=== PATIENT | female | born 1945 | race Caucasian/White ===

== ENCOUNTER → 2016-12-17 | Outpatient (CLI) | payer MEDICARE ==
[~2016-12-17] MED LIST: ASPI81CH CHEW; FAMO1TAB37 PO; FERR324T4 PO; FERR325T PO; LIPI40TA PO; METO25TA3 PO; PLAV75TA29 PO; SUCR1TAB PO
[2016-12-17 14:46] LABS: HEMATOCRIT 27.2 % (35.0-46.0); REVIEW FLAG FINAL
== END ==
LOC: CLAB 14:24
DX: K92.1 Melena (principal)
CPT/HCPCS: 36415; 85014; 85018

== ENCOUNTER → 2016-12-23 | Outpatient (CLI) | payer MEDICARE ==
[2016-12-23 11:51] LABS: HEMATOCRIT 29.1 % (35.0-46.0); REVIEW FLAG FINAL
== END ==
LOC: CLAB 11:21
DX: K92.1 Melena (principal)
CPT/HCPCS: 36415; 85014; 85018

== ENCOUNTER → 2016-12-30 | Outpatient (CLI) | payer MEDICARE ==
[2016-12-30 11:33] LABS: HEMATOCRIT 31.8 % (35.0-46.0); REVIEW FLAG FINAL
== END ==
LOC: CLAB 11:15
DX: K92.1 Melena (principal)
CPT/HCPCS: 36415; 85014; 85018

== ENCOUNTER → 2017-01-06 | Outpatient (CLI) | payer MEDICARE ==
[2017-01-06 11:13] LABS: HEMATOCRIT 33.6 % (35.0-46.0); REVIEW FLAG FINAL
== END ==
LOC: CLAB 10:26
DX: K92.1 Melena (principal)
CPT/HCPCS: 36415; 85014; 85018

== ENCOUNTER → 2017-01-13 | Outpatient (CLI) | payer MEDICARE ==
[2017-01-13 13:02] LABS: HEMATOCRIT 30.3 % (35.0-46.0); REVIEW FLAG FINAL
== END ==
LOC: CLAB 12:46
DX: K92.1 Melena (principal)
CPT/HCPCS: 36415; 85014; 85018

== ENCOUNTER 2017-01-17 15:03 | Emergency (ER) | payer MEDICARE ==
[2017-01-17] VITALS (8 sets, daily range): BP systolic 110–156; BP diastolic 56–70; PULSE 80–95; RESP 14–20; TEMP 98–98.5; O2SAT 97–100
[~2017-01-17] VITALS: Ht 160 cm; Wt 60.0 kg
[~2017-01-17 15:03] MED LIST changes: -ASPI81CH CHEW; -FAMO1TAB37 PO; -FERR324T4 PO; -LIPI40TA PO; -METO25TA3 PO; -PLAV75TA29 PO; -SUCR1TAB PO
[2017-01-17] MEDS ORDERED: PLAV75TA29 PO (15:54)
[2017-01-17] MEDS ORDERED: METO25TA3 PO (15:54)
[2017-01-17] MEDS ORDERED: FAMO1TAB37 PO (15:54)
[2017-01-17] MEDS ORDERED: FERR324T4 PO (15:54)
[2017-01-17] MEDS ORDERED: SUCR1TAB PO (15:54)
[2017-01-17] MEDS ORDERED: ASPI81CH CHEW (15:54)
[2017-01-17] MEDS ORDERED: LIPI40TA PO (15:54)
--- NOTE | 2017-01-17 16:01 | PD ---
HPI Chief Complaint: Abnormal Results Time Seen by Provider: 15:57 Travel History International Travel<30 days: No Contact w/Intl Traveler<30days: No Traveled to known affect area: No History of Present Illness HPI 71-year-old female came to the emergency room with history of low hemoglobin from GI bleed. Patient is seen by her GI specialist Dr. Son. She has history of GI bleed and was recently started on Plavix one week ago by her market research intern and she has a stent in her coronary artery. Since then her hemoglobin dropped from 9.7-7.8. She is feeling little weak but otherwise awake and answering questions appropriately. Vital signs are stable. No history of chest pain currently. [facility] Past Medical History Narrative Medical List of her past medical, surgical, social and family history was reviewed from the nursing note. Hx Anticoagulant Therapy: Yes Anemia: Yes Arthritis: Yes Blood Disorders: No Cardiovascular Problems: Yes (2 STENTS) Chest Pain: Yes Cerebrovascular Accident: No Diminished Hearing: No Endocrine: No GERD: Yes Headaches: Yes Hypertension: No Immune Disorder: No Musculoskeletal: No Neurologic: No Reproductive: No Respiratory: No Immunizations Current: Yes Migraines: No Myocardial Infarction: Yes Menopausal: Yes Past Surgical History Abdominal Surgery: No Cardiac Surgery: Yes Ear Surgery: No Endocrine Surgery: No Eye Surgery: No Genitourinary Surgery: No Gynecologic Surgery: Yes (UTERINE CANCER) Hysterectomy: Yes Neurologic Surgery: No Oral Surgery: Yes (REBUILD BONE & TEETH IMPLANTS) Thoracic Surgery: No Tonsillectomy: Yes (1948) Other Surgery: Yes (BREAST AUGMENTATION) Social History Alcohol Use: No Tobacco Use: No Substance Use: No Allergies-Medications (Allergen,Severity, Reaction): Coded Allergies: No Known Allergies (Verified , 01/17/17) Comments No known drug allergies. Reported Meds & Prescriptions Reported Meds & Active Scripts Active Reported Plavix (Clopidogrel Bisulfate) 75 Mg Tab 75 Mg PO DAILY Sucralfate 1 Gm Tab 1 Gm PO TID on empty stomach Pepcid (Famotidine) 20 Mg Tab 20 Mg PO DAILY Metoprolol Tartrate 25 Mg Tab 25 Mg PO DAILY Lipitor (Atorvastatin Calcium) 40 Mg Tab 40 Mg PO HS Ferrous Sulfate DR (Ferrous Sulfate) 324 Mg Tabdr 324 Mg PO DAILY Aspirin 81 Mg Chew 81 Mg CHEW DAILY Iron (Ferrous Sulfate) 325 Mg Tab 325 Mg PO BID Narrative Medication List of her home medications reviewed from the nursing note. Review of Systems Except as stated in HPI: all other systems reviewed are Neg Physical Exam Narrative GENERAL: Awake, alert, no obvious distress SKIN: Focused skin assessment warm/dry. Pale HEAD: Atraumatic. Normocephalic. EYES: Pupils equal and round. No scleral icterus. No injection or drainage. Pallor ENT: No nasal bleeding or discharge. Mucous membranes pink and moist. NECK: Trachea midline. No JVD. CARDIOVASCULAR: Regular rate and rhythm. No murmur appreciated. RESPIRATORY: No accessory muscle use. Clear to auscultation. Breath sounds equal bilaterally. GASTROINTESTINAL: Abdomen soft, non-tender, nondistended. Hepatic and splenic margins not palpable. MUSCULOSKELETAL: No obvious deformities. No clubbing. No cyanosis. No edema. NEUROLOGICAL: Awake and alert. No obvious cranial nerve deficits. Motor grossly within normal limits. Normal speech. PSYCHIATRIC: Appropriate mood and affect; insight and judgment normal. Data Data Last Documented VS Orders Type And Screen (01/17/17 16:05) Red Blood Cells (Rbc) (01/17/17 16:05) Blood Product Administration .UPON TRANSFUSION (01/17/17 16:05) Sodium Chlor 0.9% 250 Ml Inj (Ns 250 Ml (01/17/17 16:15) Labs Laboratory Tests Test 01/17/17 16:09 Blood Type A POSITIVE Antibody Screen NEGATIVE Crossmatch Leukocyte-Reduced Red Blood Cells Blood Bank Comment MDM Medical Decision Making Medical Screen Exam Complete: Yes Emergency Medical Condition: Yes Medical Record Reviewed: Yes Differential Diagnosis Upper GI bleed, lower GI bleed Narrative Course 5:02 PM patient does have a GI specialist who is working her up for the GI bleed. Since she does not have any active hemorrhage I do not want to get into the workup of GI bleed. However I have ordered 2 units of PRBC transfusion. After the transfusion is done patient will be discharged home. She is aware of this and she is comfortable with the plan. Procedures EKG Prior to Arrival: No Diagnosis Primary Impression: Symptomatic anemia Referrals: Primary Care Physician Additional Instructions: Please follow-up with a GI specialist. Return to the ER if the condition worsens or any other new concerns. Disposition: 01 DISCHARGE HOME Condition: Stable Jeff Keith MD Jan 17, 2017 16:01 Jeff Keith MD Jan 17, 2017 16:01
[2017-01-17] MEDS ORDERED: SODIUM CHLOR 0.9% 250 ML INJ 250 ML IV ONE (16:15)
== END 2017-01-17 23:01 | disposition home or self-care (01) ==
LOC: NEPC 15:03
DX: D64.9 Anemia, unspecified (principal); K92.2 Gastrointestinal hemorrhage, unspecified; R53.1 Weakness; Z79.01 Long term (current) use of anticoagulants
CPT/HCPCS: 36430; 86850; 86900; 86901; 86902; 86920; 86922; 99285; J7050; P9016

== ENCOUNTER → 2017-01-17 | Outpatient (CLI) | payer MEDICARE | LOC: CLAB 08:52 | PROVIDERS: ATTEND Internal Medicine Interventional Cardiology | DX: K92.2 Gastrointestinal hemorrhage, unspecified (principal) | CPT/HCPCS: 36415; 85018 ==

== ENCOUNTER → 2017-01-21 | Outpatient (CLI) | payer MEDICARE ==
[~2017-01-21] MED LIST changes: +ASPI81CH CHEW; +FAMO1TAB37 PO; +FERR324T4 PO; +LIPI40TA PO; +METO25TA3 PO; +PLAV75TA29 PO; +SUCR1TAB PO
[2017-01-21 09:25] LABS: HEMATOCRIT 37.1 % (35.0-46.0); REVIEW FLAG FINAL
== END ==
LOC: CLAB 09:07
DX: K92.1 Melena (principal)
CPT/HCPCS: 36415; 85014; 85018

== ENCOUNTER → 2017-01-28 | Outpatient (CLI) | payer MEDICARE ==
[2017-01-28 11:25] LABS: HEMATOCRIT 34.8 % (35.0-46.0); REVIEW FLAG FINAL
== END ==
LOC: CLAB 11:13
DX: K92.1 Melena (principal)
CPT/HCPCS: 36415; 85014; 85018

== ENCOUNTER → 2017-02-04 | Outpatient (CLI) | payer MEDICARE ==
[2017-02-04 13:06] LABS: HEMATOCRIT 36.5 % (35.0-46.0); REVIEW FLAG FINAL
== END ==
LOC: CLAB 12:47
DX: K92.1 Melena (principal)
CPT/HCPCS: 36415; 85014; 85018

== ENCOUNTER → 2017-02-15 | Outpatient (CLI) | payer MEDICARE ==
[2017-02-15 12:32] LABS: HEMATOCRIT 36.9 % (35.0-46.0); REVIEW FLAG FINAL
[2017-02-15 13:00] LABS: HDL CHOLESTEROL 79.7 MG/DL (40.0-60.0); TOTAL BILIRUBIN ADULT 0.4 MG/DL (0.2-1.0)
[2017-02-15 13:07] LABS: INDIRECT BILIRUBIN 0.3 MG/DL (0.0-0.8)
== END ==
LOC: CLAB 12:08
DX: E78.5 Hyperlipidemia, unspecified (principal); K92.1 Melena
CPT/HCPCS: 36415; 80061; 80076; 85014; 85018

== ENCOUNTER → 2017-03-08 | Outpatient (CLI) | payer MEDICARE | LOC: CLAB 12:15 | PROVIDERS: ATTEND Internal Medicine Interventional Cardiology | DX: K92.2 Gastrointestinal hemorrhage, unspecified (principal) | CPT/HCPCS: 36415; 85018 ==

== ENCOUNTER → 2017-06-03 | Outpatient (CLI) | payer MEDICARE ==
[2017-06-03 13:01] LABS: REVIEW FLAG FINAL
== END ==
LOC: CLAB 12:35
DX: K92.1 Melena (principal)
CPT/HCPCS: 36415; 85014; 85018

== ENCOUNTER 2017-06-15 11:25 | Emergency (ER) | payer MEDICARE ==
[~2017-06-15 11:25] MED LIST changes: +ASPI-516 CHEW; -ASPI81CH CHEW
--- NOTE | 2017-06-15 11:36 | PD ---
HPI Chief Complaint: General Weakness Time Seen by Provider: 11:33 Travel History International Travel<30 days: No Contact w/Intl Traveler<30days: No Traveled to known affect area: No History of Present Illness HPI This 71-year-old female says she had an episode where she felt weak all over about 2 hours ago. She had a myocardial infarction in November when she took some nitroglycerin and says she feels a little bit better now. In November she had 2 stents placed and she is on fairly well since then. 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 When she was put on blood thinners after the myocardial infarction she had bleeding and increased blood transfusions. Her last transfusion was in January and she is taken off blood thinners. She has been having some epigastric pain off and on for the past week. There was quite bad last night. She has occasional vomiting with the pain. PFSH Past Medical History Hx Anticoagulant Therapy: Yes Anemia: Yes Arthritis: Yes Blood Disorders: No Cardiovascular Problems: Yes (2 STENTS) Chest Pain: Yes Cerebrovascular Accident: No Diminished Hearing: No Endocrine: No GERD: Yes Headaches: Yes Hypertension: No Immune Disorder: No Musculoskeletal: No Neurologic: No Reproductive: No Respiratory: No Immunizations Current: Yes Migraines: No Myocardial Infarction: Yes Menopausal: Yes Past Surgical History Abdominal Surgery: No Cardiac Surgery: Yes Ear Surgery: No Endocrine Surgery: No Eye Surgery: No Genitourinary Surgery: No Gynecologic Surgery: Yes (UTERINE CANCER) Hysterectomy: Yes Neurologic Surgery: No Oral Surgery: Yes (REBUILD BONE & TEETH IMPLANTS) Thoracic Surgery: No Tonsillectomy: Yes (194) Other Surgery: Yes (BREAST AUGMENTATION) Social History Alcohol Use: No Tobacco Use: No Substance Use: No Allergies-Medications (Allergen,Severity, Reaction): Coded Allergies: No Known Allergies (Verified Adverse Reaction, Unknown, 06/15/17) Reported Meds & Prescriptions Reported Meds & Active Scripts Active Reported Nitroglycerin SL (Nitroglycerin) 0.4 Mg Subl 0.4 Mg SL DIRECTED PRN ONE TABLET UNDER THE TONGUE NEEDED FOR CHEST PAIN, MAY REPEAT EVERY FIVE MINUTES FOR A TOTAL OF 3 DOSES OR CALL 911 IF NO RELIEF Sucralfate 1 Gm Tab 1 Gm PO TID on empty stomach Pepcid (Famotidine) 20 Mg Tab 20 Mg PO DAILY Metoprolol Tartrate 25 Mg Tab 25 Mg PO DAILY Lipitor (Atorvastatin Calcium) 40 Mg Tab 40 Mg PO HS Ferrous Sulfate DR (Ferrous Sulfate) 324 Mg Tabdr 324 Mg PO DAILY Aspirin 81 Mg Chew 81 Mg CHEW DAILY Review of Systems General / Constitutional: No: Fever, Chills HENT: Positive: Lightheadedness Cardiovascular: No: Chest Pain or Discomfort, Palpitations Respiratory: No: Cough, Shortness of Breath Gastrointestinal: Positive: Nausea, Abdominal Pain Genitourinary: No: Frequency, Dysuria Neurologic: Positive: Weakness Psychiatric: No: Anxiety, Depression Hematologic/Lymphatic: No: Easy Bruising Physical Exam Narrative GENERAL: Well-developed female SKIN: Focused skin assessment warm/dry. HEAD: Atraumatic. Normocephalic. EYES: Pupils equal and round. No scleral icterus. No injection or drainage. ENT: No nasal bleeding or discharge. Mucous membranes pink and moist. NECK: Trachea midline. No JVD. CARDIOVASCULAR: Regular rate and rhythm. No murmur appreciated. RESPIRATORY: No accessory muscle use. Clear to auscultation. Breath sounds equal bilaterally. GASTROINTESTINAL: Abdomen soft, there is some epigastric tenderness, nondistended. Hepatic and splenic margins not palpable. MUSCULOSKELETAL: No obvious deformities. No clubbing. No cyanosis. No edema. NEUROLOGICAL: Awake and alert. No obvious cranial nerve deficits. Motor grossly within normal limits. Normal speech. PSYCHIATRIC: Appropriate mood and affect; insight and judgment normal. Data Data Last Documented VS Vital Signs Date Time Temp Pulse Resp B/P (MAP) Pulse Ox O2 Delivery O2 Flow Rate FiO2 06/15/17 11:45 98.6 80 15 184/76 (112) 100 Orders Orders Electrocardiogram (06/15/17 11:33) Complete Blood Count With Diff (06/15/17 11:33) Comprehensive Metabolic Panel (06/15/17 11:33) Troponin I (06/15/17 11:33) Lipase (06/15/17 11:33) Urinalysis - C+S If Indicated (06/15/17 11:33) Us Abdomen Gallbladder (06/15/17 11:34) Labs Laboratory Tests Test 06/15/17 11:38 White Blood Count 6.7 TH/MM3 Red Blood Count 3.91 MIL/MM3 Hemoglobin 10.5 GM/DL Hematocrit 33.1 % Mean Corpuscular Volume 84.7 FL Mean Corpuscular Hemoglobin 26.8 PG Mean Corpuscular Hemoglobin Concent 31.6 % Red Cell Distribution Width 15.4 % Platelet Count 277 TH/MM3 Mean Platelet Volume 7.9 FL Neutrophils (%) (Auto) 74.2 % Lymphocytes (%) (Auto) 12.4 % Monocytes (%) (Auto) 6.7 % Eosinophils (%) (Auto) 6.3 % Basophils (%) (Auto) 0.4 % Neutrophils # (Auto) 5.0 TH/MM3 Lymphocytes # (Auto) 0.8 TH/MM3 Monocytes # (Auto) 0.5 TH/MM3 Eosinophils # (Auto) 0.4 TH/MM3 Basophils # (Auto) 0.0 TH/MM3 CBC Comment DIFF FINAL Differential Comment Blood Urea Nitrogen 17 MG/DL Creatinine 0.76 MG/DL Random Glucose 99 MG/DL Total Protein 6.8 GM/DL Albumin 3.7 GM/DL Calcium Level 8.6 MG/DL Alkaline Phosphatase 70 U/L Aspartate Amino Transf (AST/SGOT) 17 U/L Alanine Aminotransferase (ALT/SGPT) 23 U/L Total Bilirubin 0.4 MG/DL Sodium Level 138 MEQ/L Potassium Level 4.0 MEQ/L Chloride Level 104 MEQ/L Carbon Dioxide Level 25.0 MEQ/L Anion Gap 9 MEQ/L Estimat Glomerular Filtration Rate 75 ML/MIN Troponin I LESS THAN 0.02 NG/ML Lipase 233 U/L MDM Medical Decision Making Medical Screen Exam Complete: Yes Emergency Medical Condition: Yes Medical Record Reviewed: Yes Differential Diagnosis Differential includes gastritis, cholecystitis, generalized weakness, anemia Narrative Course Hemoglobin today is 10.5 which is similar to previous values. Liver function tests are normal. Her white count is normal. Ultrasound of the gallbladder is normal on reevaluating the patient she says she feels well. She is stable for discharge. Etiology of her abdominal discomfort is not clear. She does have a history of abdominal AVMs and is on Prilosec. She follow up with Dr. Ambriz who has seen her in the past area EKG and troponin are negative and I don't believe this is a cardiac issue Diagnosis Primary Impression: Gastritis Additional Instructions: Continue Prilosec, follow-up with Dr. Ambriz Disposition: 01 DISCHARGE HOME Condition: Stable Dhiraj Tracy MD Jun 15, 2017 11:36
[2017-06-15 11:45] VITALS: BP 184/76; PULSE 80; RESP 15; TEMP 98.6; O2SAT 100
[2017-06-15 11:49] LABS: BASOPHIL % 0.4 % (0.0-2.0); EOSINOPHIL # 0.4 TH/MM3 (0-0.4); EOSINOPHIL % 6.3 % (0.0-4.0); HEMATOCRIT 33.1 % (35.0-46.0); HEMO FLAGS DIFF FINAL; LYMPH % 12.4 % (9.0-44.0); LYMPHOCYTE # 0.8 TH/MM3 (1.0-4.8); MEAN CELL VOLUME 84.7 FL (80.0-100.0); MEAN CORPUSCULAR HEMOGLOBIN 26.8 PG (27.0-34.0); MEAN CORPUSCULAR HGB CONC 31.6 % (32.0-36.0); MONO % 6.7 % (0.0-8.0); NEUT % 74.2 % (16.0-70.0); PLATELET COUNT 277 TH/MM3 (150-450); RED BLOOD COUNT 3.91 MIL/MM3 (4.00-5.30); RED CELL DISTRIBUTION WIDTH 15.4 % (11.6-17.2); WHITE BLOOD COUNT 6.7 TH/MM3 (4.0-11.0)
[2017-06-15 11:56] LABS: CHLORIDE 104 MEQ/L (98-107); SODIUM (NA) 138 MEQ/L (136-145)
[2017-06-15] MEDS ORDERED: NITR1SUB3 SL (12:00)
[2017-06-15 12:01] LABS: ANION GAP 9 MEQ/L (5-15); BLOOD UREA NITROGEN 17 MG/DL (7-18)
[2017-06-15 12:04] LABS: ALT (GPT) 23 U/L (10-53); AST (GOT) 17 U/L (15-37); GLOMERULAR FILTRATION RATE 75 ML/MIN (>89)
[2017-06-15 12:05] LABS: TOTAL BILIRUBIN ADULT 0.4 MG/DL (0.2-1.0)
[2017-06-15 12:07] LABS: ALKALINE PHOSPHATASE 70 U/L (45-117)
--- NOTE | 2017-06-15 12:29 | RADRPT ---
EXAM DATE/TIME: 06/15/2017 11:59 [facility] COMPARISON: No previous studies available for comparison. INDICATIONS : Nausea/vomiting. MEDICAL HISTORY : Myocardial infarction. Arthritis. Uterine cancer. Head trauma. Chest pain. GERD. Anemia. Anticoagul ant therapy. SURGICAL HISTORY : Tonsillectomy. Coronary artery stent. Hysterectomy. Oral surgery, rebuild bone and teeth implants. Br east augmentation. ENCOUNTER: Initial ACUITY: 1 week PAIN SCORE: 0/10 LOCATION: Right upper quadrant MEASUREMENTS: LIVER: 14.0 cm length COMMON DUCT: 5 mm RIGHT KIDNEY: 9.4 x 4.6 x 3.5 cm FINDINGS: LIVER: Normal echotexture without focal lesion or ductal dilatation. There is normal flow velocity and direc tion in the main portal vein. COMMON DUCT: No intraluminal mass or stone visualized. GALLBLADDER: Trace sludge. No perceptible stone. No wall thickening or pericholecystic fluid. PANCREAS: The visualized portions are within normal limits. RIGHT KIDNEY: No evidence of hydronephrosis, stone, or mass. CONCLUSION: Very small amount of gallbladder sludge. Otherwise negative right upper quadrant ultrasound. Gume Garza MD on June 15, 2017 at 12:26 Board Certified Radiologist. This report was verified electronically.
[2017-06-15 12:59] VITALS: BP 130/53
--- NOTE | 2017-06-15 16:41 | EKG ---
Date Performed: 06/15/2017 Time Performed: 11:33:19 PTAGE: 71 years EKG: Sinus rhythm POSSIBLE RIGHT VENTRICULAR CONDUCTION DELAY Mild nonspecific ST T wave changes BORDERLINE ECG Compar ed to prior electrocardiogram, rate has increased and mild nonspecific ST T wave changes are present. PREVIOUS TRACING : 08/06/2016 14.16 DOCTOR: Patrick Mackey Interpretating Date/Time 06/15/2017 16:40:30
== END 2017-06-15 13:15 | disposition home or self-care (01) ==
LOC: PHED 11:25
DX: K29.70 Gastritis, unspecified, without bleeding (principal); R94.31 Abnormal electrocardiogram [ECG] [EKG]; I25.2 Old myocardial infarction; Z79.01 Long term (current) use of anticoagulants
CPT/HCPCS: 76705; 80053; 83690; 84484; 85025; 93005; 99285

== ENCOUNTER → 2017-07-11 | Outpatient (CLI) | payer MEDICARE ==
[~2017-07-11] MED LIST changes: -FERR325T PO; +NITR1SUB3 SL; -PLAV75TA29 PO
[2017-07-11 13:15] LABS: REVIEW FLAG FINAL
== END ==
LOC: CLAB 12:43
DX: K92.1 Melena (principal)
CPT/HCPCS: 36415; 85014; 85018

== ENCOUNTER → 2017-08-15 | Outpatient (CLI) | payer MEDICARE ==
[2017-08-15 12:34] LABS: HEMOGLOBIN 9.7 GM/DL (11.6-15.3)
== END ==
LOC: CLAB 11:56
PROVIDERS: ATTEND Physician Assistant Medical
DX: D50.0 Iron deficiency anemia secondary to blood loss (chronic) (principal)
CPT/HCPCS: 36415; 85014; 85018

== ENCOUNTER → 2017-09-19 | Outpatient (CLI) | payer MEDICARE ==
[2017-09-19 12:21] LABS: HEMOGLOBIN 10.7 GM/DL (11.6-15.3)
== END ==
LOC: CLAB 11:53
DX: D50.0 Iron deficiency anemia secondary to blood loss (chronic) (principal)
CPT/HCPCS: 36415; 85014; 85018

== ENCOUNTER → 2017-11-21 | Outpatient (CLI) | payer MEDICARE ==
[2017-11-21 12:54] LABS: HEMATOCRIT 33.3 % (35.0-46.0); HEMOGLOBIN 10.8 GM/DL (11.6-15.3)
== END ==
LOC: CLAB 12:31
DX: D50.0 Iron deficiency anemia secondary to blood loss (chronic) (principal)
CPT/HCPCS: 36415; 85014; 85018

== ENCOUNTER 2017-12-06 11:31 | Day surgery (SDC) | payer MEDICARE ==
[~2017-12-06] VITALS: Ht 158.8 cm; Wt 65.7 kg
[2017-12-06] MEDS ORDERED: IOHEXOL 350 MG/ML 100 ML BTL (for Cath Lab) OTHER ONE (11:32)
[2017-12-06] MEDS ORDERED: PRIL20TA2 (12:09)
[2017-12-06] MEDS ORDERED: ISOS30TA3 PO (12:09)
[2017-12-06 12:10] VITALS: BP 129/58; PULSE 71; RESP 18; TEMP 97.8; O2SAT 99
[2017-12-06] MEDS ORDERED: NS 1000P @30 MLS/HR (KVO) IV SCH (12:15)
[2017-12-06 12:36] LABS: BASOPHIL # 0.1 TH/MM3 (0-0.2); BASOPHIL % 0.9 % (0.0-2.0); EOSINOPHIL # 0.4 TH/MM3 (0-0.4); EOSINOPHIL % 5.4 % (0.0-4.0); HEMATOCRIT 29.1 % (35.0-46.0); HEMOGLOBIN 9.2 GM/DL (11.6-15.3); LYMPH % 12.4 % (9.0-44.0); LYMPHOCYTE # 0.8 TH/MM3 (1.0-4.8); MEAN CELL VOLUME 84.2 FL (80.0-100.0); MEAN CORPUSCULAR HEMOGLOBIN 26.8 PG (27.0-34.0); MEAN CORPUSCULAR HGB CONC 31.8 % (32.0-36.0); MEAN PLATELET VOLUME 8.6 FL (7.0-11.0); MONO % 6.4 % (0.0-8.0); MONOCYTE # 0.4 TH/MM3 (0-0.9); NEUT % 74.9 % (16.0-70.0); PLATELET COUNT 365 TH/MM3 (150-450); RED BLOOD COUNT 3.45 MIL/MM3 (4.00-5.30); RED CELL DISTRIBUTION WIDTH 19.6 % (11.6-17.2); WHITE BLOOD COUNT 6.6 TH/MM3 (4.0-11.0)
[2017-12-06 12:54] LABS: BICARBONATE 24.6 MEQ/L (21.0-32.0); CALCIUM 8.4 MG/DL (8.5-10.1); CREATININE 0.83 MG/DL (0.50-1.00)
[2017-12-06] MEDS ORDERED: MIDAZOLAM HCL 5 MG/5 ML VIAL ONE (13:57)
[2017-12-06] MEDS ORDERED: NITROGLYCERIN INJ 5 ML ONE (14:05)
[2017-12-06] MEDS ORDERED: HEPARIN SODIUM - IV 10,000 UNITS/10 ML VIAL ONE (14:05)
[2017-12-06] MEDS ORDERED: LIDOCAINE HCL 1% PF 30 ML VIAL ONE (14:08)
[2017-12-06] MEDS ORDERED: CLOPIDOGREL 300 MG TAB ONE (15:31)
--- NOTE | 2017-12-06 15:47 | CATHPROC ---
[email or web address] HIS Report Study Information Study Number Admission Scheduled Start Study Start [id number] Dec 06 2017 11:31AM 12/06/2017 Dec 06 2017 1:52PM [place] [facility] Cardiac Catheterization Admit Source Facility Department Emergency department [facility] - Nurse Coordinator Physician and Clinical Staff Initial Harsha Joyner Co Teacher Horacio Jansen RN Other cathlab, cathlab Recorder Bryn Wing RCIS(BS) Scrub Tennille Suazo,RT(R) Procedures Performed Procedure Location (Site) Vessel Name Angiogram LV LV Ventricle Coronary Angiograms LCA Left Coronary Coronary Angiograms RCA Right Coronary L Heart Cath PTCA CIRC Mid CIRC Stent CIRC Mid CIRC Wire insertion Fem Art (right) Femoral Art Equipment Time Elephant Keeper Description Size Mfg Part Number Used/Scraped WIRE, BALANCE MIDDLEWEIGHT [id number] 14:55 [employer] 190CM Used 190CM *[id number] TRANSDUCER, TRUWAVE [id number] 13:53 [email or web address] FERNANDES * Used W/STOCKCOCK *[id number] [id number] *[id number] 534-520T *[id number] [id number] *[id number] [id number] *[id number] *[id number] 15:24 DAIG/[facility] MEDICAL ANGIOSEAL, FR6 VIP FR 6 Used *[id number] 13:53 MEDLINE IND[employer]ES PACK, CCL CUSTOM * Used *[id number] 13:53 [employer] PACER PEN, SKIN DUAL W/ RULER * Used *[id number] 15:04 MED[employer]ONIC BALLOON, 2.0 X 6MM EUPHORA 6MM Used *[id number] 15:08 [employer] STENT, 2.5 12 INTEGRITY 2.5 12 Used *[id number] 15:06 [employer] MEDICAL 30 NATALEE INDEFLATOR Used *[id number] 14:57 [employer] MEDICAL SHEATH, FR6.5 PRELUDE 23CM FR 6.5 Used [id number] 13:53 [employer] WIRE, 3MMJ .035 180CM 180CM Used *[id number] PROBE COVER, STERILE [id number] 13:53 [employer] MEDICAL * Used ULTRASOUND W/ GEL *[id number] 13:53 NAMIC MANIFOLD, 4 PORT * Used *[id number] 14:18 NAMIC TUBING, HIGH PRESSURE 48" 48" Used *[id number] 13:53 NAMIC TUBING, HIGH PRESSURE 48" 48" Used *[id number] 13:53 [employer] OMNIPAQUE, 350 MG, 150ML 150ML [id number] Used 14:40 NYCOMED OMNIPAQUE, 350 MG, 50ML 50ML [id number] Used [id number] 13:53 [employer] MEDICAL BLANKET,WARM AIR CCL * Used *[id number] 13:53 TERUMO MEDICAL SHEATH, FR5 TERUMO (10CM) FR 5 Used *[id number] Equipment Model, Serial, Lot Number and Expiration Data Description Model Number Serial Number Lot Number Expiration Date STENT, 2.5 12 INTEGRITY [id number] 06-01-2019 History: Current Medications Medication Dosage/Unit Route Frequency Last Date/Time Taken LIPITOR Toprol Imdur ASA History: Allergies Allergy Reaction No Known Allergies History: Risk Factors Family History of Hypertension Dyslipidemia Previous MS Previous Heart Failure Premature CAD No Yes Yes Yes No Prior Valve Prior PCI Prior PCIDate Prior CABG Surgery No Yes 11/06/2016 No Cerebrovascular Peripheral Artery Chronic Lung On Dialysis Diabetes Disease Disease Disease No No No No No History: CV Disease Selection Items Known CAD MS History: Stress Tests Stress or Imaging Studies Performed Yes Standard Exercise Stress Test No Stress Echo No Stress Test SPECT Stress Test SPECT Result Stress Test SPECT Ischemia Risk/Extent Yes Positive Intermediate Stress Test CMR No Cardiac CTA Coronary Calcium Score No No History: Other Disease Selection Items CAD History: Other Current Smoker Method Quit Packs a Day Years Used Pack Years No Cigarettes 1 Years Ago 1 53 53 Labs Hgb (g/dl) Hct (%) RBC (MIL/MM3) WBC (l/cumm) Platelets (thousands) 11.60-17.00 35.00-51.00 4.00-5.90 4.00-11.00 150.00-450.00 9.2 29.1 3.4 6.6 365 Glucose (mg/dl) BUN (mg/dl) Creatinine (mg/dl) BUN:Creatinine (1:x) 74.00-106.00 7.00-18.00 0.50-1.30 10.00-20.00 91 16 0.8 20 Na (meq/l) K (meq/l) Cl (meq/l) CO2 (mmol/L) Ca (mg/dl) 136.00-145.00 3.50-5.10 98.00-107.00 21.00-32.00 8.50-10.10 143 4.2 109 24.6 8.4 PT (sec) PTT (sec) INR (PTT:PT) 9.80-11.60 24.30-30.10 0.90-1.10 10 24.3 1 CPK-MB (ng/ML) 0.50-3.60 Not Drawn Medication Medication Total Dose (Bolus/Oral) Medication Total Dosage/Unit 1% XYLOCAINE 20 mL FENTANYL 100 mcg HEPARIN 5000 units NTG (IC) 400 mcg PLAVIX 600 mg VERSED 5 mg Medications (Bolus/Oral) Medication Time Given Dosage/Unit Administered By Reason VERSED 12/06/2017 2:14:10 PM 1 mg Inderjit, Horacio 1 mg VERSED given in lab by Horacio Jansen RN in Left Wrist via Peripheral IV. FENTANYL 12/06/2017 2:15:06 PM 25 mcg Inderjit, Horacio 25 mcg FENTANYL given in lab by Horacio Jansen RN in Left Wrist via Peripheral IV. VERSED 12/06/2017 2:26:40 PM 1 mg Quadrat, Otakar 1 mg VERSED given in lab by Harsha Patel in Left Wrist via Peripheral IV. FENTANYL 12/06/2017 2:28:11 PM 25 mcg Inderjit, Horacio 25 mcg FENTANYL given in lab by Horacio Jansen RN in Left Wrist via Peripheral IV. 1% XYLOCAINE 12/06/2017 2:34:18 PM 20 mL Amanda, Jaykar 20 mL 1% XYLOCAINE given in lab by Harsha Patel in Right Groin via Subcutaneous. VERSED 12/06/2017 2:41:05 PM 1 mg Inderjit, Horacio 1 mg VERSED given in lab by Horacio Jansen RN in Left Wrist via Peripheral IV. FENTANYL 12/06/2017 2:41:22 PM 25 mcg Quadrat, [place] 25 mcg FENTANYL given in lab by Harsha Patel in Left Wrist via Peripheral IV. VERSED 12/06/2017 2:54:43 PM 1 mg Inderjit, Horacio 1 mg VERSED given in lab by Horacio Jansen RN in Left Wrist via Peripheral IV. FENTANYL 12/06/2017 2:55:00 PM 25 mcg Harsha Patel 25 mcg FENTANYL given in lab by Harsha Patel in Left Wrist via Peripheral IV. HEPARIN 12/06/2017 2:59:03 PM 5000 units Horacio Jansen 5000 units HEPARIN given in lab by Horacio Jansen RN in Left Wrist via Peripheral IV. VERSED 12/06/2017 2:59:10 PM 1 mg Horacio Jansen 1 mg VERSED given in lab by Horacio Jansen RN in Left Wrist via Peripheral IV. NTG (IC) 12/06/2017 3:01:52 PM 100 mcg Tennille Suazo 100 mcg NTG (IC) given in lab by Tennille Suazo RT(R) via Intra-coronary. NTG (IC) 12/06/2017 3:12:58 PM 100 mcg Tennille Suazo 100 mcg NTG (IC) given in lab by Tennille Suazo RT(R) via Intra-coronary. NTG (IC) 12/06/2017 3:14:13 PM 100 mcg Tennille Suazo 100 mcg NTG (IC) given in lab by Tennille Suazo RT(R) via Intra-coronary. NTG (IC) 12/06/2017 3:15:49 PM 100 mcg Tennille Suazo 100 mcg NTG (IC) given in lab by Tennille Suazo RT(R) via Intra-coronary. PLAVIX 12/06/2017 3:36:32 PM 600 mg Horacio Jansen 600 mg PLAVIX given in lab by Horacio Jansen RN via Oral. Medication (Drip) Medication Time Given Dosage/Unit Concentration/Unit Diluent (ml) Solutio n IV Solutions 12/06/2017 1:52:30 PM 0 mL (IV) 500 NaCl .9 Patient arrived on IV Solutions in Left Wrist via Peripheral IV. Pump/Drip Flow = 20 ml/hr using NaCl .9. Initial Case Assessment Cardiovascular HR Rhythm NIBP Chest Pain 71 Sinus 138/63 0 Edema Present Skin color Skin None Normal Warm Dry Circulatory - Right Pulses Dorsalis Pedis Femoral 2 2 Scale (0,1,2,3,4,d) Circulatory - Left Pulses Dorsalis Pedis Femoral 2 2 Scale (0,1,2,3,4,d) Neurological State Oriented to time-place- Alert Moves all extremities person Respiration - General Respiration Rate SpO2 (%) O2 (lpm) (B/min) 19 100 0 Final Case Assessment Cardiovascular HR Rhythm NIBP Chest Pain 83 Sinus 115/60 0 Edema Present Skin color Skin None Normal Warm Dry Circulatory - Right Pulses Dorsalis Pedis Femoral 2 2 Scale (0,1,2,3,4,d) Circulatory - Left Pulses Dorsalis Pedis Femoral 2 2 Scale (0,1,2,3,4,d) Neurological State Oriented to time-place- Alert Moves all extremities person Respiration - General Respiration Rate SpO2 (%) O2 (lpm) (B/min) 17 98 2 Chronological Log Time Study Chronological Log 13:52:22 Patient arrived via Bed. 13:52:22 Patient Name, D.O.B, / Armband Verified By R.N. 13:52:23 Consent signed by the physician and the patient and verified by the Nurse Coordinator staff. 13:52:24 Pre-op and post- op instructions given; patient acknowledges understanding of instructions. 13:52:24 Verbal Stimulation=2 Physical Stimulation=2 Airway=2 Respiration=2 TOTAL=8. (0=absent, 1=li mited, 2=present) 13:52:25 Presedation assessment performed by Nurse Coordinator RN. 13:52:26 Immediate Presedation assesment performed by physician. 13:52:26 Patient has been NPO for More than 6Hrs. 13:52:27 Skin Breakdown- none per patient 13:52:27 Patient Warmer Placed on the Table. 13:52:28 Jessica Prominences Protected 13:52:29 A # 20 IV was noted in the Wrist (left). Grade = 0 13:52:30 Patient arrived on IV Solutions in Left Wrist via Peripheral IV. Pump/Drip Flow = 20 ml/hr using NaCl .9. 13:52:30 History and physical on the chart or being dictated. Assessment: Initial Case, HR=71 BPM, Rhythm=Sinus, MGYG=877/63 mmhg, Chest Pain=0, Edema=None, Color=Normal, Skin = Warm, Dry Right Pulses: Suhas Ped=2, Femoral=2 13:57:56 Left Pulses: Suhas Ped=2, Femoral=2 Neurological: State=Alert, Ox3, MIRANDA Respiration: Resp=19 B/min, DgJ9=288 %, O2=0 lpm Vitals capture started with the following parameters, Patient=Adult, Interval=5 min, Initial Pr ptdzrl=722 mmHg, 14:01:26 Deflation Rate=5 mmHg, Cuff placed on Left Arm 14:02:39 HR=71 bpm, KBDX=869/63 mmhg, SpO2=97.0 %, Resp=19 B/min, Pain=0, Leana=10, Lang=2 14:07:05 HR=66 bpm, EOVZ=801/61 mmhg, SpO2=99.0 %, Resp=16 B/min, Pain=0, Leana=10, Lang=2 14:08:20 Reference ECG taken 14:09:55 Bilateral groins prepped with 2% chlorhexidine, and draped after a 3 minute waiting time. 14:12:06 HR=73 bpm, EDZC=959/66 mmhg, MtE6=919.0 %, Resp=21 B/min, Pain=0, Leana=10, Lang=2 14:14:10 1 mg VERSED given in lab by Horacio Jansen RN in Left Wrist via Peripheral IV. 14:14:56 paged 14:15:06 25 mcg FENTANYL given in lab by Horacio Jansen RN in Left Wrist via Peripheral IV. 14:16:04 Pressure channel 1 zeroed. 14:17:10 HR=72 bpm, GGDU=215/62 mmhg, SpO2=99.0 %, Resp=17 B/min, Pain=0, Leana=10, Lang=2 14:22:07 HR=69 bpm, RCMS=435/62 mmhg, SpO2=99.0 %, Resp=16 B/min, Pain=0, Leana=10, Lang=2 14:26:18 arrived. 14:26:40 1 mg VERSED given in lab by Harsha Patel in Left Wrist via Peripheral IV. 14:27:08 HR=74 bpm, XKFG=650/61 mmhg, NiT3=940.0 %, Resp=14 B/min, Pain=0, Leana=10, Lang=2 14:28:11 25 mcg FENTANYL given in lab by Horacio Jansen RN in Left Wrist via Peripheral IV. 14:32:07 HR=72 bpm, NIYN=808/63 mmhg, SpO2=99.0 %, Resp=14 B/min, Pain=0, Leana=10, Lang=2 Time Out. Correct patient, correct procedure, correct physician, power injector loaded with con trast with surgical team 14:32:27 present. Time Out Concurred by MD and individual staff in procedure. 14:32:40 Case Start 14:34:18 20 mL 1% XYLOCAINE given in lab by Harsha Patel in Right Groin via Subcutaneous. 14:35:24 Access site was Right Femoral Artery. 14:36:01 A SHEATH, FR5 TERUMO (10CM) FR 5 was advanced into the Fem Art (right) using the Percutaneo us technique. A PIGTAIL ANG. INFINITI CATHETER FR 5 was advanced over a wire. OMNIPAQUE, 350 MG, 150ML 150ML was used 14:36:18 for injections. 14:37:08 VP=610 bpm, TGET=156/65 mmhg, SpO2=99.0 %, Resp=20 B/min, Pain=0, Leana=10, Lang=2 Recorded Pressure: LV, HR=94, Condition=Condition 1 14:38:21 (Left Ventricle) LV 126/8/14 14:39:25 The LV was injected at 10 cc/sec for a total of 30. OMNIPAQUE, 350 MG, 50ML 50ML used. Recorded Pressure: LV, Ao, HR=80, Condition=Condition 1 14:40:17 (Left Ventricle) LV 119/6/15, (Aorta) Ao 122/50/80 14:41:00 Catheter was removed A JL 4.0 INFINITI CATHETER FR 5 was advanced over a wire. OMNIPAQUE, 350 MG, 150ML 150ML was us ed for 14:41:02 injections. 14:41:05 1 mg VERSED given in lab by Horacio Jansen, RN in Left Wrist via Peripheral IV. 14:41:22 25 mcg FENTANYL given in lab by Harsha Patel in Left Wrist via Peripheral IV. Recorded Pressure: Ao, HR=77, Condition=Condition 1 14:42:09 (Aorta) Ao 117/50/77 14:42:39 The LCA was injected and visualized at various angles. OMNIPAQUE, 350 MG, 150ML 150ML used . 14:42:40 HR=74 bpm, RWVU=354/57 mmhg, SpO2=99.0 %, Resp=14 B/min, Pain=0, Leana=10, Lang=2 14:44:14 Catheter was removed A AR MOD INFINITI CATHETER FR 5 was advanced over a wire. OMNIPAQUE, 350 MG, 150ML 150ML was us ed for 14:44:27 injections. 14:45:27 The RCA was injected and visualized at various angles. OMNIPAQUE, 350 MG, 150ML 150ML used . 14:46:47 Catheter was removed 14:47:08 HR=85 bpm, ZCFH=419/55 mmhg, SpO2=99.0 %, Resp=14 B/min, Pain=0, Leana=10, Lang=2 14:52:07 HR=79 bpm, VMYT=449/53 mmhg, SpO2=99.0 %, Resp=15 B/min, Pain=0, Leana=10, Lang=2 14:54:43 1 mg VERSED given in lab by Horacio Jansen RN in Left Wrist via Peripheral IV. 14:55:00 25 mcg FENTANYL given in lab by Harsha Patel in Left Wrist via Peripheral IV. A SHEATH, FR6.5 PRELUDE 23CM FR 6.5 was exchanged in the Fem Art (right). This was necessary in order to 14:55:27 accomodate a larger catheter. A XBC 3.5 GUIDE CATHETER FR 6 was advanced over a wire. OMNIPAQUE, 350 MG, 150ML 150ML was used for 14:56:42 injections. 14:57:08 HR=80 bpm, HLOU=554/57 mmhg, SpO2=99.0 %, Resp=13 B/min, Pain=0, Leana=10, Alng=2 14:57:43 Catheter was removed A XBC 3.0 GUIDE CATHETER FR 6 was advanced over a wire. OMNIPAQUE, 350 MG, 150ML 150ML was used for 14:58:48 injections. 14:59:03 5000 units HEPARIN given in lab by Horacio Jansen RN in Left Wrist via Peripheral IV. 14:59:10 1 mg VERSED given in lab by Horacio Jansen RN in Left Wrist via Peripheral IV. 15:00:23 A WIRE, BALANCE MIDDLEWEIGHT 190CM 190CM was inserted via Fem Art (right). 15:00:56 Interventional wire has crossed the lesion 15:01:52 100 mcg NTG (IC) given in lab by Tennille Suazo RT(R) via Intra-coronary. 15:02:09 HR=80 bpm, HQGV=421/45 mmhg, SpO2=98.0 %, Resp=12 B/min, Pain=0, Leana=10, Lang=2 15:04:32 Activated Clotting Time Drawn A BALLOON, 2.0 X 6MM EUPHORA 6MM was inserted over WIRE, BALANCE MIDDLEWEIGHT 190CM 190CM via t he 15:04:47 CIRC Mid. A BALLOON, 2.0 X 6MM EUPHORA 6MM over a WIRE, BALANCE MIDDLEWEIGHT 190CM 190CM in the CIRC Mid was 15:05:52 inflated using a 30 NATALEE INDEFLATOR at 16 natalee for 22 sec. 15:06:26 Balloon Removed. 15:06:57 The LCA was injected and visualized at various angles. OMNIPAQUE, 350 MG, 150ML 150ML used . 15:07:06 HR=82 bpm, GZEB=025/50 mmhg, SpO2=96.0 %, Resp=13 B/min, Pain=0, Leana=10, Lang=2 An STENT, 2.5 12 INTEGRITY 2.5 12 Bare Metal Stent was inserted through a XBC 3.0 GUIDE CATHETE R FR 6 over a 15:09:00 WIRE, BALANCE MIDDLEWEIGHT 190CM 190CM. A STENT, 2.5 12 INTEGRITY 2.5 12 was deployed using a 30 NATALEE INDEFLATOR at 9 atmospheres for 50 seconds in the 15:11:32 CIRC Mid. 15:12:07 HR=86 bpm, FJXF=277/53 mmhg, SpO2=98.0 %, Resp=18 B/min, Pain=0, Leana=10, Lang=2 15:12:28 Delivery device removed 15:12:31 ACT (Normal Range 90-180) = 296 15:12:58 100 mcg NTG (IC) given in lab by Tennille Suazo RT(R) via Intra-coronary. 15:13:35 The LCA was injected and visualized at various angles. OMNIPAQUE, 350 MG, 150ML 150ML used . 15:14:13 100 mcg NTG (IC) given in lab by Tennille Suazo RT(R) via Intra-coronary. 15:14:33 The LCA was injected and visualized at various angles. OMNIPAQUE, 350 MG, 150ML 150ML used . 15:15:49 100 mcg NTG (IC) given in lab by Tennille Suazo RT(R) via Intra-coronary. 15:16:53 The LCA was injected and visualized at various angles. OMNIPAQUE, 350 MG, 150ML 150ML used . 15:17:08 HR=86 bpm, OYGU=434/52 mmhg, SpO2=95.0 %, Resp=20 B/min, Pain=0, Leana=10, Lang=2 15:17:26 Wire removed 15:17:42 Catheter was removed 15:18:02 Case End 15:20:14 An injection in the Fem Art (right) was made through the SHEATH, FR6.5 PRELUDE 23CM FR 6.5 . 15:22:11 HR=85 bpm, YYXY=317/60 mmhg, SpO2=97.0 %, Resp=20 B/min, Pain=0, Leana=10, Lang=2 15:23:48 ANGIOSEAL, FR6 VIP FR 6 placement in the Fem Art (right) Assessment: Final Case, HR=83 BPM, Rhythm=Sinus, MNLO=379/60 mmhg, Chest Pain=0, Edema=None, Color=Normal, Skin = Warm, Dry Right Pulses: Suhas Ped=2, Femoral=2 15:24:18 Left Pulses: Suhas Ped=2, Femoral=2 Neurological: State=Alert, Ox3, MIRANDA Respiration: Resp=17 B/min, SpO2=98 %, O2=2 lpm 15:27:10 HR=84 bpm, YZJY=203/60 mmhg, EwM6=500.0 %, Resp=17 B/min, Pain=0, Leana=10, Lang=2 15:31:09 Sterile dressing applied to site 15:31:10 No case complications noted. 15:31:11 Cine recording checked. 15:32:11 HR=84 bpm, DOGO=374/61 mmhg, CvZ8=188.0 %, Resp=19 B/min, Pain=0, Leana=10, Lang=2 15:33:48 Bedside Report will be given. 15:33:49 Implantable Device card placed in patient's chart. 15:33:59 A Left Heart Cath was performed. 15:36:32 600 mg PLAVIX given in lab by Horacio Jansen RN via Oral. 15:37:10 HR=88 bpm, VQUC=582/67 mmhg, SpO2=99.0 %, Resp=18 B/min, Pain=0, Leana=10, Lang=2 15:38:13 Vitals capture stopped. 15:38:29 Patient moved to stretcher End Study - Contrast Media Used In Study Contrast Total Opened (mL) Total Used (mL) Total Wasted (mL) Omnipaque 200 180 20 End Study - Maximum Contrast Load Max Contrast Load (mL) 398.0 End Study - Radiation Exposure Fluoro Time (minutes) 6.3 End Study - Patient Disposition Complications Transferred To Interventional Outcome No Outpatient Bed successful
[2017-12-06] MEDS ORDERED: SODIUM CHLOR 0.9% 1000 ML INJ 1,000 ML IV SCH (18:07)
[2017-12-06] MEDS ORDERED: MISC INFORMATION XX ONE (18:15)
--- NOTE | 2017-12-06 19:25 | MR ---
cc: Harsha Patel MD DATE: 12/06/2017 INDICATION: Unstable angina, moderate risk nuclear myocardial perfusion study, class 3 angina. PROCEDURE PERFORMED: 1. Retrograde left heart catheterization with left ventriculography and selective coronary angiography. 2. Angioplasty and stenting of the mid left circumflex artery. 3. Moderate sedation. ACCESS SITE: Right femoral artery. EQUIPMENT USED: 5 Kazakh pigtail, 5 Fr JL4 and AR modified coronary artery catheters, XB 3.0 circumflex guide, BMW wire, 2.0 x 6 mm balloon for predilatation, 2.5 x 12 mm bare-metal Integrity stent at 9 atmospheres. MEDICATIONS: Versed, IV fentanyl, IV heparin, IC nitroglycerin, PO Plavix 600 mg CONTRAST: Omnipaque 180 mL. BLOOD LOSS: Less than 10 mL COMPLICATIONS: None. METHOD OF HEMOSTASIS: Angio-Seal closure. RESULTS: A. HEMODYNAMICS: Heart rate 77 beats per minute, left end-diastolic pressure 6 mmHg. Left ventricle 120/6. Aorta 120/50/77. B. LEFT VENTRICULOGRAPHY: Left ventricular ejection fraction 65%. Wall motion normal. No mitral regurgitation. C: CHOLANGIOGRAPHY: Left main coronary artery patent, left anterior descending artery patent. D1 patent. Left circumflex artery had 40% stenosis in the proximal portion and 85% stenosis in the mid portion, followed by a 40% stenosis. OM 1 is patent. Right coronary artery is a dominant vessel with patent stents in vessel. PDA patent. PLV patent. The stenosis in the mid left circumflex artery was 7 mm long. Pre ABIEL flow 3. Post ABIEL flow 3. Post stenosis 0. There was 40% circumflex stenosis distal to the stent. Angiography of the right femoral artery showed severe profunda ostial stenosis. Post-intervention angiography revealed excellent patency of the stented segment and no evidence of dissection, thrombosis or distal embolization. DIAGNOSES: 1. Coronary artery disease with severe stenosis of the mid left circumflex artery and patent stents in the right coronary artery. 2. Well-preserved left ventricular systolic function. 3. Successful angioplasty and stenting of the mid left circumflex artery. DISPOSITION: Ms. Lepe will be monitored on telemetry after procedure. We will continue therapy with Plavix and baby aspirin for at least 1 month and baby aspirin long-term. We will continue and intensify aggressive modification of her cardiac risk factors. I will see her back for followup in our office after discharge. MD ABDON Naidu// , 04:27 PM , 04:55 PM [place]
[2017-12-06 19:30] VITALS: BP 144/66; PULSE 77; RESP 16; TEMP 98; O2SAT 96
[2017-12-06 20:00] VITALS: BP 128/65; PULSE 80; PULSE 82; RESP 18; TEMP 97.8; O2SAT 97
[2017-12-06] MEDS: METOPROLOL TARTRATE 25 MG TAB PO SCH (20:45)
[2017-12-06 21:00] VITALS: PULSE 78
[2017-12-06] MEDS ORDERED: ATORVASTATIN 40 MG TAB PO SCH (21:00)
[2017-12-06 22:00] VITALS: PULSE 76
[2017-12-06 23:00] VITALS: PULSE 78
[2017-12-07] VITALS (21 sets, daily range): BP systolic 120–136; BP diastolic 56–79; PULSE 62–94; RESP 16–18; TEMP 97.8–99.2; O2SAT 97–99
[2017-12-07 06:44] LABS: AUTOMATED NEUTROPHIL # 4.5 TH/MM3 (1.8-7.7); BASOPHIL % 0.7 % (0.0-2.0); EOSINOPHIL # 0.4 TH/MM3 (0-0.4); EOSINOPHIL % 7.4 % (0.0-4.0); HEMATOCRIT 25.6 % (35.0-46.0); HEMOGLOBIN 8.3 GM/DL (11.6-15.3); LYMPH % 8.9 % (9.0-44.0); LYMPHOCYTE # 0.5 TH/MM3 (1.0-4.8); MEAN CELL VOLUME 82.7 FL (80.0-100.0); MEAN CORPUSCULAR HEMOGLOBIN 26.9 PG (27.0-34.0); MEAN CORPUSCULAR HGB CONC 32.6 % (32.0-36.0); MEAN PLATELET VOLUME 8.5 FL (7.0-11.0); MONO % 6.6 % (0.0-8.0); MONOCYTE # 0.4 TH/MM3 (0-0.9); NEUT % 76.4 % (16.0-70.0); PLATELET COUNT 274 TH/MM3 (150-450); RED CELL DISTRIBUTION WIDTH 18.9 % (11.6-17.2); WHITE BLOOD COUNT 5.9 TH/MM3 (4.0-11.0)
[2017-12-07 06:59] LABS: BICARBONATE 22.4 MEQ/L (21.0-32.0); CALCIUM 7.9 MG/DL (8.5-10.1); CREATININE 0.7 MG/DL (0.50-1.00)
[2017-12-07 07:03] LABS: CHOLESTEROL/ HDL RATIO 1.82 RATIO; HDL CHOLESTEROL 53.2 MG/DL (40.0-60.0)
[2017-12-07] MEDS: METOPROLOL TARTRATE 25 MG TAB PO SCH (08:31)
--- NOTE | 2017-12-07 08:57 | EKG ---
Date Performed: 12/07/2017 Time Performed: 06:09:42 PTAGE: 72 years EKG: Sinus rhythm rSr'(V1) - probable normal variant Normal ECG PREVIOUS TRACING : 12/06/2017 22.06 Since the previous tracing, no significant change noted DOCTOR: Ramon Escalante Interpretating Date/Time 12/07/2017 08:51:54
--- NOTE | 2017-12-07 08:57 | EKG ---
Date Performed: 12/06/2017 Time Performed: 12:16:56 PTAGE: 72 years EKG: Sinus rhythm . rSr'(V1) - probable normal variant Normal ECG PREVIOUS TRACING : 06/15/2017 11.33 Since the previous tracing, no significant change noted DOCTOR: Ramon Escalante Interpretating Date/Time 12/07/2017 08:52:14
--- NOTE | 2017-12-07 08:57 | EKG ---
Date Performed: 12/06/2017 Time Performed: 22:06:48 PTAGE: 72 years EKG: Sinus rhythm rSr'(V1) - probable normal variant Lateral T wave changes are nonspecific Borderline ECG PREVIOUS TRACING : 12/06/2017 12.16 Since the previous tracing, no significant change noted DOCTOR: Ramon Escalante Interpretating Date/Time 12/07/2017 08:52:04
[2017-12-07] MEDS ORDERED: ISOSORBIDE MONONITRATE 30 MG CR TAB (IMDUR) PO SCH (09:00)
[2017-12-07] MEDS ORDERED: METOPROLOL TARTRATE 25 MG TAB PO SCH (09:00)
[2017-12-07] MEDS ORDERED: ASPIRIN 81 MG CHEW TAB CHEW SCH (09:00)
[2017-12-07] MEDS ORDERED: CLOPIDOGREL 75 MG TAB PO SCH (09:00)
[2017-12-07] MEDS ORDERED: FERROUS SULFATE 325 MG (65 MG ELEMENTAL IRON) TAB PO SCH (09:00)
--- NOTE | 2017-12-07 16:30 | PD.CARD.PN ---
Subjective Subjective Remarks No CP or SOB, no GIB Objective Medications Current Medications Medications (Trade) Dose Ordered Sig/Kelsea Route Start Time Stop Time Status Last Admin Sodium Chloride 1,000 ml @ 30 mls/hr Q24H IV 12/06/17 12:15 (Aspirin Chew) 81 mg DAILY CHEW 12/07/17 09:00 12/07/17 08:30 (Lipitor) 40 mg HS PO 12/06/17 21:00 12/06/17 20:45 (Imdur) 30 mg DAILY PO 12/07/17 09:00 12/07/17 08:32 (Ferrous Sulfate) 325 mg DAILY PO 12/07/17 09:00 12/07/17 08:30 (Lopressor) 12.5 mg Q12HR PO 12/06/17 21:00 12/07/17 08:31 (Plavix) 75 mg DAILY PO 12/07/17 09:00 12/07/17 08:30 Vital Signs / I&O Vital Signs Date Time Temp Pulse Resp B/P (MAP) Pulse Ox O2 Delivery O2 Flow Rate FiO2 12/07/17 15:43 98.6 73 16 121/62 (81) 97 12/07/17 15:00 68 12/07/17 14:00 72 12/07/17 13:00 80 12/07/17 12:00 66 12/07/17 11:52 99.2 72 18 120/56 (77) 99 12/07/17 11:00 68 12/07/17 10:00 72 12/07/17 09:00 82 12/07/17 08:00 84 12/07/17 07:38 98 Room Air 12/07/17 07:14 98.6 75 16 133/65 (87) 97 12/07/17 07:00 62 12/07/17 05:58 68 12/07/17 05:00 76 12/07/17 04:00 98.4 77 18 134/74 (94) 98 12/07/17 04:00 Room Air 12/07/17 04:00 74 12/07/17 03:00 74 12/07/17 02:00 70 12/07/17 01:00 72 12/07/17 00:00 Room Air 12/07/17 00:00 98.6 78 18 129/63 (85) 99 12/07/17 00:00 76 12/06/17 23:00 78 12/06/17 22:00 76 12/06/17 21:00 78 12/06/17 20:00 82 12/06/17 20:00 Room Air 12/06/17 20:00 97.8 80 18 128/65 (86) 97 12/06/17 19:30 98.0 77 16 144/66 (92) 96 I/O 12/06/17 12/06/17 12/06/17 12/07/17 12/07/17 12/07/17 07:00 15:00 23:00 07:00 15:00 23:00 Intake Total 400 ml Balance 400 ml Intake Oral 400 ml # Voids 4 Physical Exam GENERAL: In NAD SKIN: Warm and dry. HEAD: Normocephalic. EYES: No scleral icterus. No injection or drainage. NECK: Supple, trachea midline. No JVD or lymphadenopathy. CARDIOVASCULAR: Regular rate and rhythm without murmurs, gallops, or rubs. RESPIRATORY: Breath sounds equal bilaterally. No accessory muscle use. GASTROINTESTINAL: Abdomen soft, non-tender, nondistended. MUSCULOSKELETAL: No cyanosis, or edema. Groin benign Laboratory Laboratory Tests Test 12/07/17 05:23 White Blood Count 5.9 TH/MM3 Red Blood Count 3.10 MIL/MM3 Hemoglobin 8.3 GM/DL Hematocrit 25.6 % Mean Corpuscular Volume 82.7 FL Mean Corpuscular Hemoglobin 26.9 PG Mean Corpuscular Hemoglobin Concent 32.6 % Red Cell Distribution Width 18.9 % Platelet Count 274 TH/MM3 Mean Platelet Volume 8.5 FL Neutrophils (%) (Auto) 76.4 % Lymphocytes (%) (Auto) 8.9 % Monocytes (%) (Auto) 6.6 % Eosinophils (%) (Auto) 7.4 % Basophils (%) (Auto) 0.7 % Neutrophils # (Auto) 4.5 TH/MM3 Lymphocytes # (Auto) 0.5 TH/MM3 Monocytes # (Auto) 0.4 TH/MM3 Eosinophils # (Auto) 0.4 TH/MM3 Basophils # (Auto) 0.0 TH/MM3 CBC Comment DIFF FINAL Differential Comment Blood Urea Nitrogen 13 MG/DL Creatinine 0.70 MG/DL Random Glucose 81 MG/DL Calcium Level 7.9 MG/DL Sodium Level 142 MEQ/L Potassium Level 4.0 MEQ/L Chloride Level 111 MEQ/L Carbon Dioxide Level 22.4 MEQ/L Anion Gap 9 MEQ/L Estimat Glomerular Filtration Rate 83 ML/MIN Total Creatine Kinase 51 U/L Triglycerides Level 47 MG/DL Cholesterol Level 97 MG/DL LDL Cholesterol 34 MG/DL HDL Cholesterol 53.2 MG/DL Cholesterol/HDL Ratio 1.82 RATIO Assessment and Plan Problem List: (1) Unstable angina ICD Codes: I20.0 - Unstable angina (2) CAD (coronary artery disease) ICD Codes: I25.10 - Atherosclerotic heart disease of [place] coronary artery without angina pectoris (3) Stented coronary artery ICD Codes: Z95.5 - Presence of coronary angioplasty implant and graft (4) GI bleed ICD Codes: K92.2 - Gastrointestinal hemorrhage, unspecified Assessment and Plan No recurrent angina. BMS placed to cx yest. Mild Hgb drop, possibly dilutional. No gross GIB. Continue clopidogrel for at least 1 mo and baby ASA long-term. Pt given script for clopidogrel, she has all other meds at home. DC home. F/u w Dr. Ambriz as scheduled tomorrow. Will schedule f/u w me as well. Harsha Patel MD December 07, 2017 16:30
[2017-12-07] MEDS ORDERED: CLOP75TA PO (16:36)
== END 2017-12-07 17:11 | disposition home or self-care (01) ==
LOC: HDOC 11:31 → HDIC 11:32 → HCIS 19:13 → HDOC 12-07 17:11
PROVIDERS: ATTEND Internal Medicine Interventional Cardiology
DX: I25.110 Atherosclerotic heart disease of native coronary artery with unstable angina pectoris (principal); I10 Essential (primary) hypertension; K92.2 Gastrointestinal hemorrhage, unspecified; Z79.02 Long term (current) use of antithrombotics/antiplatelets; Z79.82 Long term (current) use of aspirin
CPT/HCPCS: 80048; 80061; 82550; 85025; 85610; 85730; 92920; 93005; 93458; C1725; C1760; C1769; C1876; C1887; C1893; G0269; J1644; J2250; J3010; Q9967

== ENCOUNTER 2017-12-08 11:14 | Observation (INO) | payer MEDICARE ==
[2017-12-08] VITALS (11 sets, daily range): BP systolic 121–151; BP diastolic 56–72; PULSE 69–82; RESP 16–22; TEMP 97.9–98.9; O2SAT 95–98
[~2017-12-08] VITALS: Ht 157.5 cm; Wt 65.0 kg
[~2017-12-08 11:14] MED LIST changes: +CLOP75TA PO; -FAMO1TAB37 PO; +ISOS30TA3 PO; +PRIL20TA2; -SUCR1TAB PO
[2017-12-08] MEDS ORDERED: PANTOPRAZOLE INJ 80 MG in SODIUM CHLORIDE 0.9% INJ 100 ML IV SCH (12:00)
--- NOTE | 2017-12-08 12:09 | PD ---
HPI Chief Complaint: GI Complaint Time Seen by Provider: 11:30 Travel History International Travel<30 days: No Contact w/Intl Traveler<30days: No Traveled to known affect area: No History of Present Illness HPI 72-year-old female that presents to the ED for evaluation of possible GI bleed. 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 Patient has a history of some GI bleed and requiring transfusion 6 times. She is currently on blood thinners including Plavix and aspirin secondary to having a stent placed [address] rey. Patient follows with Dr. Mcfarland for GI and went to see him today because they noted that her hemoglobin was dropping and apparently she had a presyncopal episode in the office and she looked pale and she was brought here by ambulance for evaluation of this. She states that her stools are always dark but they feel like she is bleeding now. She denies any pain. She states feeling weak and lightheaded. She denies any chest pain or shortness of breath. No allergies to medication. No other medical issues. No urinary issues. Has no other medical issues at this time. States compliance with the blood thinner. PFSH Past Medical History Hx Anticoagulant Therapy: Yes (PLAVIX ) Anemia: Yes Arthritis: Yes Blood Disorders: No Cancer: Yes (uterine) Chest Pain: Yes Cerebrovascular Accident: Yes Coronary Artery Disease: Yes Diabetes: No Diminished Hearing: No Endocrine: No Gastrointestinal Disorders: Yes (AVM'S IN GUT, BLOOD TRANSFUSIONS) GERD: Yes Headaches: Yes Hypertension: Yes Immune Disorder: No Musculoskeletal: No Neurologic: No Reproductive: No Respiratory: No Immunizations Current: Yes Migraines: No Myocardial Infarction: Yes Tetanus Vaccination: < 5 Years Influenza Vaccination: No ?: Not Menopausal: Yes Past Surgical History Abdominal Surgery: No Cardiac Surgery: Yes Coronary Stent: Yes (X'S 07 NOVEMBER 2016) Ear Surgery: No Endocrine Surgery: No Eye Surgery: No Genitourinary Surgery: No Gynecologic Surgery: Yes (UTERINE CANCER) Hysterectomy: Yes Neurologic Surgery: No Oral Surgery: Yes (REBUILD BONE & TEETH IMPLANTS) Thoracic Surgery: No Tonsillectomy: Yes (1948) Other Surgery: Yes (BREAST AUGMENTATION) Social History Alcohol Use: No Tobacco Use: No Substance Use: No Allergies-Medications (Allergen,Severity, Reaction): Coded Allergies: No Known Allergies (Verified Allergy, Unknown, 12/08/17) Reported Meds & Prescriptions Reported Meds & Active Scripts Active Reported Clopidogrel (Clopidogrel Bisulfate) 75 Mg Tab 75 Mg PO DAILY Isosorbide Mononitrate ER (Isosorbide Mononitrate) 30 Mg Jana 30 Mg PO DAILY Prilosec (Omeprazole Magnesium) 20 Mg Tab Nitroglycerin SL (Nitroglycerin) 0.4 Mg Subl 0.4 Mg SL DIRECTED PRN ONE TABLET UNDER THE TONGUE NEEDED FOR CHEST PAIN, MAY REPEAT EVERY FIVE MINUTES FOR A TOTAL OF 3 DOSES OR CALL 911 IF NO RELIEF Metoprolol Tartrate 25 Mg Tab 25 Mg PO DAILY Lipitor (Atorvastatin Calcium) 40 Mg Tab 40 Mg PO HS Ferrous Sulfate DR (Ferrous Sulfate) 324 Mg Tabdr 324 Mg PO DAILY Aspirin 81 Mg Chew 81 Mg CHEW DAILY Review of Systems Except as stated in HPI: all other systems reviewed are Neg Physical Exam Narrative GENERAL: SKIN: Warm and dry. Pale looking HEAD: Atraumatic. Normocephalic. EYES: Pupils equal and round. No scleral icterus. No injection or drainage. ENT: No nasal bleeding or discharge. Mucous membranes pink and moist. Tongue is midline. No uvula deviation. NECK: Trachea midline. No JVD. CARDIOVASCULAR: Regular rate and rhythm. No murmurs, S3, S4. RESPIRATORY: No accessory muscle use. Clear to auscultation. Breath sounds equal bilaterally. GASTROINTESTINAL: Abdomen soft, non-tender, nondistended. Hepatic and splenic margins not palpable. MUSCULOSKELETAL: Extremities without clubbing, cyanosis, or edema. No obvious deformities. Full range of motion of the upper and lower extremities bilaterally. 2+ pulses bilaterally. NEUROLOGICAL: Awake and alert. No obvious cranial nerve deficits. Motor grossly within normal limits. Five out of 5 muscle strength in the arms and legs. Normal speech. PSYCHIATRIC: Appropriate mood and affect; insight and judgment normal. Data Data Last Documented VS Vital Signs Date Time Temp Pulse Resp B/P (MAP) Pulse Ox O2 Delivery O2 Flow Rate FiO2 12/08/17 12:55 78 128/63 (84) 129/71 (90) 121/61 (81) 12/08/17 11:23 98.7 16 98 Orders Orders Complete Blood Count With Diff (12/08/17 11:20) Comprehensive Metabolic Panel (12/08/17 11:20) Prothrombin Time / Inr (Pt) (12/08/17 11:20) Act Partial Throm Time (Ptt) (12/08/17 11:20) Lipase (12/08/17 11:20) Magnesium (Mg) (12/08/17 11:20) Iv Access Insert/Monitor (12/08/17 11:20) Ecg Monitoring (12/08/17 11:20) Oximetry (12/08/17 11:20) Type And Screen (12/08/17 11:20) Red Blood Cells (Rbc) (12/08/17 11:43) Pantoprazole Inj (Protonix Inj) (12/08/17 12:00) Troponin I (12/08/17 12:11) Ckmb (Isoenzyme) Profile (12/08/17 12:11) Orthostatic Vital Signs (12/08/17 12:23) Blood Product Administration (12/08/17 12:33) Sodium Chlor 0.9% 250 Ml Inj (Ns 250 Ml (12/08/17 12:45) Red Blood Cells (Rbc) (12/08/17 13:23) Sodium Chlor 0.9% 250 Ml Inj (Ns 250 Ml (12/08/17 13:30) Admit Order (Ed Use Only) (12/08/17 13:24) Labs Laboratory Tests Test 12/08/17 11:45 12/08/17 12:40 White Blood Count 8.7 TH/MM3 Red Blood Count 3.24 MIL/MM3 Hemoglobin 8.5 GM/DL Hematocrit 27.2 % Mean Corpuscular Volume 83.9 FL Mean Corpuscular Hemoglobin 26.4 PG Mean Corpuscular Hemoglobin Concent 31.5 % Red Cell Distribution Width 19.1 % Platelet Count 318 TH/MM3 Mean Platelet Volume 8.4 FL Neutrophils (%) (Auto) 84.9 % Lymphocytes (%) (Auto) 6.0 % Monocytes (%) (Auto) 6.3 % Eosinophils (%) (Auto) 2.1 % Basophils (%) (Auto) 0.7 % Neutrophils # (Auto) 7.3 TH/MM3 Lymphocytes # (Auto) 0.5 TH/MM3 Monocytes # (Auto) 0.5 TH/MM3 Eosinophils # (Auto) 0.2 TH/MM3 Basophils # (Auto) 0.1 TH/MM3 CBC Comment DIFF FINAL Differential Comment Blood Urea Nitrogen 14 MG/DL Creatinine 0.79 MG/DL Random Glucose 96 MG/DL Total Protein 6.2 GM/DL Albumin 3.2 GM/DL Calcium Level 8.0 MG/DL Magnesium Level 1.9 MG/DL Alkaline Phosphatase 76 U/L Aspartate Amino Transf (AST/SGOT) 32 U/L Alanine Aminotransferase (ALT/SGPT) 18 U/L Total Bilirubin 0.3 MG/DL Sodium Level 139 MEQ/L Potassium Level 4.7 MEQ/L Chloride Level 108 MEQ/L Carbon Dioxide Level 21.8 MEQ/L Anion Gap 9 MEQ/L Estimat Glomerular Filtration Rate 72 ML/MIN Lipase 255 U/L Prothrombin Time 10.1 SEC Prothromb Time International Ratio 1.0 RATIO Activated Partial Thromboplast Time 23.8 SEC MDM Medical Decision Making Medical Screen Exam Complete: Yes Emergency Medical Condition: Yes Medical Record Reviewed: Yes Interpretation(s) EKG shows sinus rhythm with no sign of acute ischemia or arrhythmia rhythm and attending. CBC & BMP Diagram 12/08/17 11:45 Total Protein 6.2 L, Albumin 3.2 L, Calcium Level 8.0 L, Magnesium Level 1.9, Alkaline Phosphatase 76, Aspartate Amino Transf (AST/SGOT) 32, Alanine Aminotransferase (ALT/SGPT) 18, Total Bilirubin 0.3 Differential Diagnosis GI bleed versus anemia versus symptomatic anemia versus syncope Narrative Course 72-year-old female that presents to the ED for evaluation of possible GI bleed. Patient was properly examined and was found to have signs and symptoms consistent with appears to be GI bleed. History of this in the past. Patient currently taking blood thinners. Labs ordered. Blood was ordered. Labs show what appears to be anemia but appears to be better than yesterday. Discussed the case with Dr. Borden who is on-call for Dr. Son who agrees the patient should be admitted for further eval and he recommends that we give enough blood for the patient to go back to 10 secondary to the recent stent placed. Dr. Borden they told me that patient does have a significant history of AVMs and has multiple ones that are actively bleeding unfortunately cannot be ablated secondary to too many being there. She will consult during the admission. This was discussed with the family and patient who agree with admission. Patient was admitted. Case discussed with Dr. Conrad who agrees to admission and would like patient to have two doses of blood rather than one. My attending Dr. Olivia evaluated the patient and agrees with plan. [facility] Point of Care Comment patient will not let me do a rectal exam for evaluation of hemocult as she states "trust me I have had this multiple times before, I know I am bleeding" Diagnosis Primary Impression: Symptomatic anemia Additional Impressions: GI bleed Qualified Codes: K92.2 - Gastrointestinal hemorrhage, unspecified Pre-syncope Admitting Information Admitting Physician Requests: Observation Herminio Singh December 08, 2017 12:09
[2017-12-08 12:10] LABS: AUTOMATED NEUTROPHIL # 7.3 TH/MM3 (1.8-7.7); BASOPHIL # 0.1 TH/MM3 (0-0.2); BASOPHIL % 0.7 % (0.0-2.0); EOSINOPHIL # 0.2 TH/MM3 (0-0.4); EOSINOPHIL % 2.1 % (0.0-4.0); HEMATOCRIT 27.2 % (35.0-46.0); HEMOGLOBIN 8.5 GM/DL (11.6-15.3); LYMPHOCYTE # 0.5 TH/MM3 (1.0-4.8); MEAN CELL VOLUME 83.9 FL (80.0-100.0); MEAN CORPUSCULAR HEMOGLOBIN 26.4 PG (27.0-34.0); MEAN CORPUSCULAR HGB CONC 31.5 % (32.0-36.0); MEAN PLATELET VOLUME 8.4 FL (7.0-11.0); MONO % 6.3 % (0.0-8.0); MONOCYTE # 0.5 TH/MM3 (0-0.9); NEUT % 84.9 % (16.0-70.0); PLATELET COUNT 318 TH/MM3 (150-450); RED BLOOD COUNT 3.24 MIL/MM3 (4.00-5.30); RED CELL DISTRIBUTION WIDTH 19.1 % (11.6-17.2); WHITE BLOOD COUNT 8.7 TH/MM3 (4.0-11.0)
[2017-12-08 12:29] LABS: ALKALINE PHOSPHATASE 76 U/L (45-117); TOTAL BILIRUBIN ADULT 0.3 MG/DL (0.2-1.0); TOTAL PROTEIN 6.2 GM/DL (6.4-8.2)
[2017-12-08 12:38] LABS: ALBUMIN 3.2 GM/DL (3.4-5.0); ALT (GPT) 18 U/L (10-53); AST (GOT) 32 U/L (15-37); BICARBONATE 21.8 MEQ/L (21.0-32.0); BLOOD UREA NITROGEN 14 MG/DL (7-18); CHLORIDE 108 MEQ/L (98-107); CREATININE 0.79 MG/DL (0.50-1.00); GLOMERULAR FILTRATION RATE 72 ML/MIN (>89); GLUCOSE,RANDOM 96 MG/DL (74-106); MAGNESIUM 1.9 MG/DL (1.5-2.5); SODIUM (NA) 139 MEQ/L (136-145)
[2017-12-08] MEDS ORDERED: SODIUM CHLOR 0.9% 250 ML INJ 250 ML IV ONE ×2 (12:45→13:30)
[2017-12-08 13:17] LABS: PROTHROMBIN TIME - PATIENT 10.1 SEC (9.8-11.6)
--- NOTE | 2017-12-08 13:48 | HHI.HP ---
[facility] Service [facility] Primary Care Physician Unknown Admission Diagnosis symptomatic anemia, on blood thinnner, heart stent 2 days ago Diagnoses: Chief Complaint: " I almost passed out" Travel History International Travel<30 Days: No Contact w/Intl Traveler <30 Da: No Traveled to Known Affected Are: No History of Present Illness This is a 72-year-old female with past medical history significant for CAD status post stents on chronic anticoagulation with aspirin and Plavix. . The patient presented to the ED for evaluation of possible GI bleed. The patient follows up with Dr. Son from gastroenterology for history of GI bleed from AVMs on her intestines. The patient states that she was recently discharged yesterday after she had a stent placed by Dr. carrasquillo from cardiology 2 days ago. The patient states that she went to a restaurant and after walking started feeling dizzy and felt like she was going to pass out. The patient however she did not pass out and recovered after resting a little bit at the restaurant. Today when she was at her follow-up appointment with Dr. Son, she had a similar sensation after walking and moving around. The patient denies any chest pain, palpitations or shortness of breath. The patient states that she has noted dark stools however she takes iron as she states that her stools are always dark. Nonetheless, she states that 2 days ago she had an episode of liquidy stool and with cystoscopy was sticky. The patient at the moment of the interview denies any chest pain, dizziness, shortness of breath, cough, fevers, chills, abdominal pain, nausea or vomiting. Review of Systems As per HPI, other systems reviewed by me and negative. Past Family Social History Past Medical History 1. AV malformations. 2. History of GI bleed. 3. History of CAD status post stents on anti-correlation with aspirin and Plavix. 4. Hypertension. 5. Hyperlipidemia Past Surgical History 1. Hysterectomy. 2. Appendectomy. 3. Breast augmentation. 4. CAD status post stents 2 on November 2016. 5. Stent placement 1 to days ago. Reported Medications Reported Meds & Active Scripts Active Reported Clopidogrel (Clopidogrel Bisulfate) 75 Mg Tab 75 Mg PO DAILY Isosorbide Mononitrate ER (Isosorbide Mononitrate) 30 Mg Jana 30 Mg PO DAILY Prilosec (Omeprazole Magnesium) 20 Mg Tab Nitroglycerin SL (Nitroglycerin) 0.4 Mg Subl 0.4 Mg SL DIRECTED PRN ONE TABLET UNDER THE TONGUE NEEDED FOR CHEST PAIN, MAY REPEAT EVERY FIVE MINUTES FOR A TOTAL OF 3 DOSES OR CALL 911 IF NO RELIEF Metoprolol Tartrate 25 Mg Tab 25 Mg PO DAILY Lipitor (Atorvastatin Calcium) 40 Mg Tab 40 Mg PO HS Ferrous Sulfate DR (Ferrous Sulfate) 324 Mg Tabdr 324 Mg PO DAILY Aspirin 81 Mg Chew 81 Mg CHEW DAILY Allergies: Coded Allergies: No Known Allergies (Verified Allergy, Unknown, 12/08/17) Active Ordered Medications Current Medications Medications (Trade) Dose Ordered Sig/Kelsea Route Start Time Stop Time Status Last Admin Pantoprazole Sodium 80 mg/ Sodium Chloride 100 ml @ 10 mls/hr CONTINUOUS IV 12/08/17 12:00 12/08/17 12:39 Sodium Chloride 250 ml @ 15 mls/hr ONCE ONCE IV 12/08/17 12:45 12/09/17 05:24 12/08/17 12:39 Sodium Chloride 250 ml @ 15 mls/hr ONCE ONCE IV 12/08/17 13:30 12/09/17 06:09 (NS Flush) 2 ml UNSCH PRN IV FLUSH 12/08/17 14:00 (NS Flush) 2 ml BID IV FLUSH 12/08/17 21:00 (Tylenol) 650 mg Q4H PRN PO 12/08/17 14:00 (Zofran Inj) 4 mg Q6H PRN IVP 12/08/17 14:00 (Narcan Inj) 0.4 mg UNSCH PRN IV PUSH 12/08/17 14:00 Family History Father from an [place]. Patient's mother who also had problems of AV malformations however she still alive and is 96 years old. Social History The patient admits to rare alcohol consumption. The patient is a former smoker she quit when she had her first heart attack 1 year ago. Patient states she used to smoke less than 1 pack per day. Denies illicit drug use. Physical Exam Vital Signs Vital Signs Date Time Temp Pulse Resp B/P (MAP) Pulse Ox O2 Delivery O2 Flow Rate FiO2 12/08/17 12:55 78 128/63 (84) 129/71 (90) 121/61 (81) 12/08/17 11:23 98.7 75 16 142/67 (92) 98 Physical Exam GENERAL: This is a well-nourished, well-developed patient, in no apparent distress. SKIN: No rashes, ecchymoses or lesions. Cool and dry.Pale skin. HEAD: Atraumatic. Normocephalic. No temporal or scalp tenderness. EYES: Pupils equal round and reactive. Extraocular motions intact. No scleral icterus. No injection or drainage. Pale conjunctiva. ENT: Nose without bleeding, purulent drainage or septal hematoma. Throat without erythema, tonsillar hypertrophy or exudate. Uvula midline. Airway patent. NECK: Trachea midline. No JVD or lymphadenopathy. Supple, nontender, no meningeal signs. CARDIOVASCULAR: Regular rate and rhythm without murmurs, gallops, or rubs. RESPIRATORY: Clear to auscultation. Breath sounds equal bilaterally. No wheezes , rales, or rhonchi. GASTROINTESTINAL: Abdomen soft, non-tender, nondistended. No hepato-splenomegaly , or palpable masses. No guarding. MUSCULOSKELETAL: Extremities without clubbing, cyanosis, or edema. No joint tenderness, effusion, or edema noted. No calf tenderness. Negative Homans sign bilaterally. NEUROLOGICAL: Awake and alert. Cranial nerves II through XII intact. Motor and sensory grossly within normal limits. Five out of 5 muscle strength in all muscle groups. Normal speech. Laboratory Laboratory Tests Test 12/08/17 11:45 12/08/17 12:40 White Blood Count 8.7 Red Blood Count 3.24 Hemoglobin 8.5 Hematocrit 27.2 Mean Corpuscular Volume 83.9 Mean Corpuscular Hemoglobin 26.4 Mean Corpuscular Hemoglobin Concent 31.5 Red Cell Distribution Width 19.1 Platelet Count 318 Mean Platelet Volume 8.4 Neutrophils (%) (Auto) 84.9 Lymphocytes (%) (Auto) 6.0 Monocytes (%) (Auto) 6.3 Eosinophils (%) (Auto) 2.1 Basophils (%) (Auto) 0.7 Neutrophils # (Auto) 7.3 Lymphocytes # (Auto) 0.5 Monocytes # (Auto) 0.5 Eosinophils # (Auto) 0.2 Basophils # (Auto) 0.1 CBC Comment DIFF FINAL Differential Comment Blood Urea Nitrogen 14 Creatinine 0.79 Random Glucose 96 Total Protein 6.2 Albumin 3.2 Calcium Level 8.0 Magnesium Level 1.9 Alkaline Phosphatase 76 Aspartate Amino Transf (AST/SGOT) 32 Alanine Aminotransferase (ALT/SGPT) 18 Total Bilirubin 0.3 Sodium Level 139 Potassium Level 4.7 Chloride Level 108 Carbon Dioxide Level 21.8 Anion Gap 9 Estimat Glomerular Filtration Rate 72 Lipase 255 Prothrombin Time 10.1 Prothromb Time International Ratio 1.0 Activated Partial Thromboplast Time 23.8 Result Diagram: 12/08/17 1145 12/08/17 1145 Caprin[place]ke VTE Risk Assessment Caprini VTE Risk Assessment: No/Low Risk (score <= 1) VTE Pharm Contraindication: Active bleeding Caprini Risk Assessment Model Point Value = 1 Point Value = 2 Point Value = 3 Point Value = 5 Age 41-60 Minor surgery BMI > 25 kg/m2 Swollen legs Varicose veins or History of unexplained or recurrent spontaneous Oral contraceptives or hormone replacement Sepsis (< 1 month) Serious lung disease, including pneumonia (< 1 month) Abnormal pulmonary function Acute myocardial infarction Congestive heart failure (< 1 month) History of inflammatory bowel disease Medical patient at bed rest Age 61-74 Arthroscopic surgery Major open surgery (> 45 min) Laparoscopic surgery (> 45 min) Malignancy Confined to bed (> 72 hours) Immobilizing plaster cast Central venous access Age >= 75 History of VTE Family history of VTE Factor V Leiden Prothrombin [id number] Lupus anticoagulant Anticardiolipin antibodies Elevated serum homocysteine Heparin-induced thrombocytopenia Other congenital or acquired thrombophilia Stroke (< 1 month) Elective arthroplasty Hip, pelvis, or leg fracture Acute spinal cord injury (< 1 month) Prophylaxis Regimen Total Risk Factor Score Risk Level Prophylaxis Regimen 0-1 Low Early ambulation 2 Moderate Order ONE of the following: *Sequential Compression Device (SCD) *Heparin 5000 units SQ BID 3-4 Higher Order ONE of the following medications: *Heparin 5000 units SQ TID *Enoxaparin/Lovenox 40 mg SQ daily (WT < 150 kg, CrCl > 30 mL/min) *Enoxaparin/Lovenox 30 mg SQ daily (WT < 150 kg, CrCl > 10-29 mL/min) *Enoxaparin/Lovenox 30 mg SQ BID (WT < 150 kg, CrCl > 30 mL/min) AND/OR *Sequential Compression Device (SCD) 5 or more Highest Order ONE of the following medications: *Heparin 5000 units SQ TID (Preferred with Epidurals) *Enoxaparin/Lovenox 40 mg SQ daily (WT < 150 kg, CrCl > 30 mL/min) *Enoxaparin/Lovenox 30 mg SQ daily (WT < 150 kg, CrCl > 10-29 mL/min) *Enoxaparin/Lovenox 30 mg SQ BID (WT < 150 kg, CrCl > 30 mL/min) AND *Sequential Compression Device (SCD) Assessment and Plan Problem List: (1) GI bleed ICD Code: K92.2 - Gastrointestinal hemorrhage, unspecified (2) Pre-syncope ICD Code: R55 - Syncope and collapse Status: Acute (3) Symptomatic anemia ICD Code: D64.9 - Anemia, unspecified Status: Acute (4) Stented coronary artery ICD Code: Z95.5 - Presence of coronary angioplasty implant and graft Assessment and Plan This is a 72-year-old female with past medical history of GI bleed due to AVMs being followed by gastroenterology presents complaining of dizziness and a presyncopal episode most likely related to symptomatic anemia and possible GI bleeding. It is noted upon review of the documentation that the patient's hemoglobin had been dropping from 9.2-8.3 to recent hospitalization for cardiac stent placement. Place the patient outpatient observation Monitor hemoglobin for GI bleed. Transfuse 2 units of packed red blood cells to a goal of more than 10 given that the patient has a history of CAD. GI consult Check iron studies Consult cardiology Check stool guaiac Continue aspirin and Plavix given that the patient had recently been placed a stent. Will only hold aspirin and Plavix if the patient has a life-threatening GI bleeding. Continue statin for hyperlipidemia. The patient has an outpatient appointment with Dr Simms from hematology to monitor anemia. Clear liquid diet SCDs for DVT prophylaxis no chemo prophylaxis given active GI bleed. Code Status Full code Discussed Condition With ED physician, patient. Problem Qualifiers (1) GI bleed: Qualified Codes: K92.2 - Gastrointestinal hemorrhage, unspecified Daryn Cruz MD December 08, 2017 13:47
[2017-12-08] MEDS ORDERED: ACETAMINOPHEN 325 MG TAB PO PRN (14:00)
[2017-12-08] MEDS ORDERED: ONDANSETRON HCL 4 MG/2 ML VIAL IVP PRN (14:00)
[2017-12-08] MEDS ORDERED: NALOXONE HCL 0.4 MG/ML AMP IV PUSH PRN (14:00)
[2017-12-08] MEDS ORDERED: SODIUM CHLORIDE 0.9% FLUSH 10 ML FLUSH IV FLUSH PRN (14:00)
[2017-12-08 14:09] LABS: % SATURATION IRON PROFILE 46.2 % (20-50); IRON (FE) 143 MCG/DL (50-170); TOTAL IRON BINDING CAPACITY 309 MCG/DL (250-450)
[2017-12-08 14:11] LABS: FERRITIN 35 NG/ML (8-252)
--- NOTE | 2017-12-08 14:11 | PD ---
Data Data Last Documented VS Vital Signs Date Time Temp Pulse Resp B/P (MAP) Pulse Ox O2 Delivery O2 Flow Rate FiO2 12/08/17 12:55 78 128/63 (84) 129/71 (90) 121/61 (81) 12/08/17 11:23 98.7 16 98 Orders Orders Complete Blood Count With Diff (12/08/17 11:20) Comprehensive Metabolic Panel (12/08/17 11:20) Prothrombin Time / Inr (Pt) (12/08/17 11:20) Act Partial Throm Time (Ptt) (12/08/17 11:20) Lipase (12/08/17 11:20) Magnesium (Mg) (12/08/17 11:20) Iv Access Insert/Monitor (12/08/17 11:20) Ecg Monitoring (12/08/17 11:20) Oximetry (12/08/17 11:20) Type And Screen (12/08/17 11:20) Red Blood Cells (Rbc) (12/08/17 11:43) Pantoprazole Inj (Protonix Inj) (12/08/17 12:00) Troponin I (12/08/17 12:11) Ckmb (Isoenzyme) Profile (12/08/17 12:11) Orthostatic Vital Signs (12/08/17 12:23) Blood Product Administration (12/08/17 12:33) Sodium Chlor 0.9% 250 Ml Inj (Ns 250 Ml (12/08/17 12:45) Red Blood Cells (Rbc) (12/08/17 13:23) Sodium Chlor 0.9% 250 Ml Inj (Ns 250 Ml (12/08/17 13:30) Admit Order (Ed Use Only) (12/08/17 13:24) Labs Laboratory Tests Test 12/08/17 11:40 12/08/17 11:45 12/08/17 12:40 Iron Level 143 MCG/DL Total Iron Binding Capacity 309 MCG/DL Percent Iron Saturation 46.2 % White Blood Count 8.7 TH/MM3 Red Blood Count 3.24 MIL/MM3 Hemoglobin 8.5 GM/DL Hematocrit 27.2 % Mean Corpuscular Volume 83.9 FL Mean Corpuscular Hemoglobin 26.4 PG Mean Corpuscular Hemoglobin Concent 31.5 % Red Cell Distribution Width 19.1 % Platelet Count 318 TH/MM3 Mean Platelet Volume 8.4 FL Neutrophils (%) (Auto) 84.9 % Lymphocytes (%) (Auto) 6.0 % Monocytes (%) (Auto) 6.3 % Eosinophils (%) (Auto) 2.1 % Basophils (%) (Auto) 0.7 % Neutrophils # (Auto) 7.3 TH/MM3 Lymphocytes # (Auto) 0.5 TH/MM3 Monocytes # (Auto) 0.5 TH/MM3 Eosinophils # (Auto) 0.2 TH/MM3 Basophils # (Auto) 0.1 TH/MM3 CBC Comment DIFF FINAL Differential Comment Blood Urea Nitrogen 14 MG/DL Creatinine 0.79 MG/DL Random Glucose 96 MG/DL Total Protein 6.2 GM/DL Albumin 3.2 GM/DL Calcium Level 8.0 MG/DL Magnesium Level 1.9 MG/DL Alkaline Phosphatase 76 U/L Aspartate Amino Transf (AST/SGOT) 32 U/L Alanine Aminotransferase (ALT/SGPT) 18 U/L Total Bilirubin 0.3 MG/DL Sodium Level 139 MEQ/L Potassium Level 4.7 MEQ/L Chloride Level 108 MEQ/L Carbon Dioxide Level 21.8 MEQ/L Anion Gap 9 MEQ/L Estimat Glomerular Filtration Rate 72 ML/MIN Lipase 255 U/L Prothrombin Time 10.1 SEC Prothromb Time International Ratio 1.0 RATIO Activated Partial Thromboplast Time 23.8 SEC MDM Supervised Visit with CHENTE: Yes Narrative Course The history, exam, and medical decision-making in the associated midlevel provider note were completed with my assistance. I reviewed and agree with the findings presented. I attest that I had a [id number] encounter with the patient on the same day, and personally performed and documented my assessment and findings in the medical record. *My assessment and Findings: This is a 72-year-old female who presents to the emergency department with a history of AV malformation and known GI bleeding having just had a stent placed this week and having been restarted on Plavix. She has been increasingly lightheaded and dizzy and fatigued. Patient has required multiple blood transfusions in the past. Her hemoglobin today is 8.5. The physician trust administrative assistant spoke to the patient's stream control officer who recommended transfusing her to hemoglobin of 10. She will be admitted for blood transfusion. Diagnosis Primary Impression: Symptomatic anemia Additional Impressions: GI bleed Qualified Codes: K92.2 - Gastrointestinal hemorrhage, unspecified Pre-syncope Highet,Massiel H. MD December 08, 2017 14:11
[2017-12-08 14:12] LABS: TROPONIN I 0.12 NG/ML (0.02-0.05)
--- NOTE | 2017-12-08 19:58 | MB ---
cc: Sara Borden MD DATE: 12/08/2017 ENDOSCOPIST: Dr. Sara Borden. PRIMARY PRINCIPAL SOFTWARE ENGINEER: Dr. Justin Ambriz. REASON FOR CONSULTATION: GI bleed. HISTORY OF PRESENT ILLNESS: This is a very pleasant 72-year-old female, well known to our office. In fact, she was in the office today and was advised to come to the hospital due to her symptoms. Her history is significant for severe coronary artery disease, and she recently underwent PTCA with stent placement and was placed on aspirin and Plavix. 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 She was recently discharged after PTCA with stent placement 2 days ago. She was in the office complaining of weakness, fatigue, feeling like presyncopal episodes, and this is the reason she was advised to come back to the hospital. At the office, she was actually complaining of intermittent chest discomfort. She has been continuing her aspirin and Plavix as advised. She continues to have regular dark bowel movements, but she is on iron tablets so it is difficult to tell whether this is active GI bleeding or just dark because of the iron. I suspect given her slow decrease in her hemoglobin, she is continuing to bleed or ooze at least a small amount throughout. PAST MEDICAL HISTORY: AVM, coronary artery disease with stent placement, hypertension, dyslipidemia. PAST SURGICAL HISTORY: Hysterectomy, appendectomy, breast augmentation, coronary artery disease with stent placement. ALLERGIES: NO KNOWN DRUG ALLERGIES. HOME MEDICATIONS: 1. Clopidogrel. 2. Isosorbide. 3. Prilosec. 4. Nitroglycerin. 5. Metoprolol. 6. Lipitor. 7. Iron sulfate. 8. Aspirin. FAMILY HISTORY: Cardiac in the father, otherwise no GI malignancy. SOCIAL HISTORY: Occasional alcohol use. Former smoker, quit a year ago. Denies any illicit drug use. REVIEW OF SYSTEMS: A 12-point review of system was obtained by me and noted to be negative and noncontributory except as mentioned in the HPI. PHYSICAL EXAMINATION: VITAL SIGNS: Temperature 98.2, heart rate 77, respirations 16, blood pressure 151/68, O2 saturation 97% on room air. GENERAL: Alert, oriented, no acute distress, no focal deficits noted. HEENT: Pupils equal, round, and reactive to light. CARDIOVASCULAR: Regular rate and rhythm. No murmurs heard. ABDOMEN: Soft, nontender, and nondistended. Bowels sounds are present in all 4 quadrants. RESPIRATORY: Lungs are clear to auscultation bilaterally. GENITOURINARY: No CV angle tenderness noted. MUSCULOSKELETAL: Upper and lower extremities equal strength. SKIN: Warm, dry, and intact. NEUROLOGIC: Alert and oriented. PSYCHIATRIC: Cooperative, appropriate mood and affect. LABORATORY DATA: WBC 8.7, hemoglobin 8.5, platelet count 318. Sodium 139, potassium 4.7, chloride 108, bicarbonate 21, BUN 14, creatinine 0.79. Iron 143, TIBC 309, iron saturation 46.2. AST 32, ALT 18. Troponin 0.12. IMPRESSION: 1. Acute on chronic gastrointestinal bleeding, likely secondary to known history of intestinal angioectasias. 2. Percutaneous transluminal coronary angioplasty with recent stent placement and currently on long-term anticoagulant therapy including aspirin and Plavix. 3. Acute anemia of gastrointestinal blood loss. RECOMMENDATIONS: 1. Advance diet as tolerated. 2. I had a long discussion with the ER physician earlier today and given her symptoms and known history of persistent slow GI bleeding, I recommended to transfuse her and try to achieve a hemoglobin of 10 in order to prevent any cardiac issues or symptomatic anemia. Additionally, today I discussed with the patient, given her recent cardiac catheterization, I would like to avoid any nonemergent endoscopic procedures. I explained that if she has persistent life-threatening bleeding, then of course we were available at any time to have her undergo endoscopic workup for therapeutic reasons, but at this time I will hold off on any diagnostic workup unless absolutely necessary. She is very agreeable to this conservative plan and appreciates the plan. 3. If the patient tolerates the diet well without any continued bleeding and finishes her transfusion overnight, then I do not have any objection from the GI standpoint for discharge with outpatient followup with cardiology and GI for periodic weekly hemoglobin check until her blood count can be stabilized. Thank you for allowing [facility] to participate in the care of the patient. Please do not hesitate to contact me for any further questions. MD NORMAN Carlisle/SEPIDEH , 07:29 PM , 07:58 PM
[2017-12-08] MEDS ORDERED: ATORVASTATIN 40 MG TAB PO SCH (21:00)
[2017-12-08] MEDS: SODIUM CHLORIDE 0.9% FLUSH 10 ML FLUSH IV FLUSH SCH (21:00)
--- NOTE | 2017-12-08 22:16 | MB ---
cc: Harsha Patel MD, Otakar MD DATE: 12/08/2017 HISTORY OF PRESENT ILLNESS: Ms. Lepe is a 72-year-old white female with a history of coronary artery disease, myocardial infarction in 11/2016 in [place] using a drug-eluting stent and recent stenting of the left circumflex artery for unstable angina. The patient was seen by Dr. Ambriz, her cigar maker and was complaining of melena. She had been anemic. She denies any chest pain, shortness of breath, dizziness or lightheadedness. PAST MEDICAL HISTORY: Positive for coronary artery disease, myocardial infarction and RCA stenting in 11/2016 and left circumflex stenting using a bare metal stent 2 days ago, history of hypertension, dyslipidemia, AV malformations GI bleeding, hysterectomy, appendectomy, breast augmentation. MEDICATIONS: 1. Aspirin. 2. Iron. 3. Lipitor. 4. Metoprolol. 5. Nitroglycerin p.r.n. 6. Prilosec. 7. Isosorbide. 8. Plavix. ALLERGIES: NONE. SOCIAL HISTORY: The patient does not smoke. She quit smoking after her infarct a year ago. She drinks alcohol rarely. She is accompanied by her . FAMILY HISTORY: Positive for heart disease in her father. REVIEW OF SYSTEMS: Otherwise negative. PHYSICAL EXAMINATION: VITAL SIGNS: Blood pressure 146/55, pulse 71 and regular. HEENT: Negative, 2+ carotid upstrokes. No bruits. LUNGS: Clear. HEART: Regular with no murmur, gallop or rub. ABDOMEN: Soft, no bruits. EXTREMITIES: Without edema, 2+ distal pulses. NEUROLOGIC: Grossly nonfocal. CARDIOLOGY STUDIES: EKG was reviewed and showed normal sinus rhythm and RSR prime in V2. No acute changes. LABORATORY DATA: Hemoglobin 8.5. Potassium 4.7, creatinine 0.8. AST and ALT normal. Troponin 0.12. CK is 40. DIAGNOSES: 1. Gastrointestinal bleeding. 2. Recent angioplasty and stenting of the left circumflex artery. 3. Anemia. 4. Coronary artery disease. 5. Arteriovenous malformations of the GI tract. DISPOSITION: Ms. Lepe will be monitored on telemetry. She will be transfused as needed. She is undergoing gastrointestinal evaluation. I recommend to continue Plavix and baby aspirin to decrease the chance of stent thrombosis and acute myocardial infarction. I will follow her for cardiology during her hospitalization. I will also see her back for followup in our office after discharge. MD ABDON Naidu/ , 09:47 PM , 10:15 PM [place]
[2017-12-09 03:33] VITALS: BP 133/63; PULSE 70; RESP 16; TEMP 97.9; O2SAT 96
[2017-12-09 05:47] LABS: AUTOMATED NEUTROPHIL # 4.9 TH/MM3 (1.8-7.7); BASOPHIL % 0.6 % (0.0-2.0); EOSINOPHIL # 0.5 TH/MM3 (0-0.4); HEMATOCRIT 32.6 % (35.0-46.0); HEMOGLOBIN 10.9 GM/DL (11.6-15.3); LYMPH % 12.7 % (9.0-44.0); LYMPHOCYTE # 0.9 TH/MM3 (1.0-4.8); MEAN CELL VOLUME 84.5 FL (80.0-100.0); MEAN CORPUSCULAR HEMOGLOBIN 28.3 PG (27.0-34.0); MEAN CORPUSCULAR HGB CONC 33.5 % (32.0-36.0); MEAN PLATELET VOLUME 8.4 FL (7.0-11.0); MONO % 8.3 % (0.0-8.0); MONOCYTE # 0.6 TH/MM3 (0-0.9); NEUT % 71.4 % (16.0-70.0); PLATELET COUNT 243 TH/MM3 (150-450); RED BLOOD COUNT 3.86 MIL/MM3 (4.00-5.30); RED CELL DISTRIBUTION WIDTH 17.4 % (11.6-17.2); WHITE BLOOD COUNT 6.8 TH/MM3 (4.0-11.0)
[2017-12-09 06:22] LABS: ALBUMIN 2.9 GM/DL (3.4-5.0); AST (GOT) 12 U/L (15-37); BICARBONATE 23.9 MEQ/L (21.0-32.0); CALCIUM 8.2 MG/DL (8.5-10.1); CHLORIDE 111 MEQ/L (98-107); CREATININE 0.74 MG/DL (0.50-1.00); GLOMERULAR FILTRATION RATE 78 ML/MIN (>89); GLUCOSE,RANDOM 87 MG/DL (74-106); SODIUM (NA) 144 MEQ/L (136-145)
[2017-12-09 06:28] LABS: ALKALINE PHOSPHATASE 66 U/L (45-117); ALT (GPT) 12 U/L (10-53); BLOOD UREA NITROGEN 22 MG/DL (7-18); TOTAL BILIRUBIN ADULT 0.8 MG/DL (0.2-1.0); TOTAL PROTEIN 5.7 GM/DL (6.4-8.2)
[2017-12-09 08:07] VITALS: BP 120/60; PULSE 68; RESP 18; TEMP 98.2; O2SAT 96
[2017-12-09] MEDS ORDERED: ASPIRIN 81 MG CHEW TAB CHEW SCH (09:00)
[2017-12-09] MEDS ORDERED: METOPROLOL TARTRATE 25 MG TAB PO SCH (09:00)
[2017-12-09] MEDS ORDERED: CLOPIDOGREL 75 MG TAB PO SCH (09:00)
[2017-12-09] MEDS: SODIUM CHLORIDE 0.9% FLUSH 10 ML FLUSH IV FLUSH SCH (09:54)
--- NOTE | 2017-12-09 17:59 | EKG ---
Date Performed: 12/08/2017 Time Performed: 11:34:27 PTAGE: 72 years EKG: Sinus rhythm POSSIBLE LEFT ATRIAL ENLARGEMENT POSSIBLE RIGHT VENTRICULAR CONDUCTION DELAY BORDERLINE ECG Since th e PREVIOUS TRACING , no significant change noted PREVIOUS TRACIN12/07/2017 06.09 DOCTOR: Alex Amaro Interpretating Date/Time 12/09/2017 16:34:23
== END 2017-12-09 11:36 | disposition home or self-care (01) ==
LOC: NEPC 11:14 → NEDA 13:25 → NEPHCDU 16:12
PROVIDERS: ADMIT Hospitalist; ATTEND Hospitalist
DX: D62 Acute posthemorrhagic anemia (principal); K55.21 Angiodysplasia of colon with hemorrhage; I25.110 Atherosclerotic heart disease of native coronary artery with unstable angina pectoris; I25.2 Old myocardial infarction; E78.5 Hyperlipidemia, unspecified; R07.89 Other chest pain; Z95.5 Presence of coronary angioplasty implant and graft; Z79.01 Long term (current) use of anticoagulants; Z87.891 Personal history of nicotine dependence
CPT/HCPCS: 36430; 76937; 80053; 82550; 82728; 83540; 83550; 83690; 83735; 84484; 85025; 85610; 85730; 86850; 86900; 86901; 86920; 86922; 93005; 96361; 96365; 96366; 99285; C9113; G0378; J7050; P9016

== ENCOUNTER → 2017-12-14 | Outpatient (CLI) | payer MEDICARE ==
[2017-12-14 14:00] LABS: HEMATOCRIT 24.6 % (35.0-46.0); HEMOGLOBIN 8.1 GM/DL (11.6-15.3)
== END ==
LOC: CLAB 13:21
DX: D50.0 Iron deficiency anemia secondary to blood loss (chronic) (principal)
CPT/HCPCS: 36415; 85014; 85018

== ENCOUNTER → 2017-12-16 | Outpatient (CLI) | payer MEDICARE ==
[2017-12-16 10:41] LABS: HEMATOCRIT 24.1 % (35.0-46.0); HEMOGLOBIN 7.9 GM/DL (11.6-15.3)
== END ==
LOC: CLAB 10:14
DX: D50.0 Iron deficiency anemia secondary to blood loss (chronic) (principal)
CPT/HCPCS: 36415; 85014; 85018

== ENCOUNTER → 2017-12-22 | Outpatient (CLI) | DX: D50.0 Iron deficiency anemia secondary to blood loss (chronic) (principal); K92.2 Gastrointestinal hemorrhage, unspecified ==

== ENCOUNTER 2017-12-28 16:25 | Observation (INO) | payer MEDICARE ==
[~2017-12-28] VITALS: Ht 160 cm; Wt 60.0 kg
[~2017-12-28 16:25] MED LIST changes: -PANT20TA2 PO
[2017-12-28 16:41] VITALS: BP 171/72; PULSE 88; RESP 16; TEMP 98.6; O2SAT 99
[2017-12-28] MEDS ORDERED: SODIUM CHLOR 0.9% 1000 ML INJ 1,000 ML IV SCH (17:16)
[2017-12-28] MEDS ORDERED: PANTOPRAZOLE INJ 80 MG in SODIUM CHLORIDE 0.9% INJ 35 ML IV ONE (17:16)
[2017-12-28 17:19] VITALS: O2SAT 100
--- NOTE | 2017-12-28 17:20 | PD ---
HPI Chief Complaint: Abnormal Results Time Seen by Provider: 17:04 Travel History International Travel<30 days: No Contact w/Intl Traveler<30days: No Traveled to known affect area: No History of Present Illness HPI 72-year-old female with history of GI bleed in the past, AV malformation, presents for evaluation of low hemoglobin. For the past 3 days she has been having fatigue and shortness of breath consistent with previous instances of low hemoglobin. She reports that she had outpatient lab work which revealed a hemoglobin of 7.6. She discussed with her hvac project engineer Dr. Ambriz who recommended that she come to the emergency room. She reports that she has chronically black stools secondary to iron use. She denies any change in the consistency or color of her stool. She denies any hematemesis. She denies any abdominal pain, chest pain, cough, congestion, nausea, vomiting. She takes a baby aspirin daily. She was started on Plavix in December 06 after she underwent stenting of the mid left circumflex artery. She was admitted on December 08 under similar circumstances for symptomatic anemia. No other complaints at this time. PFSH Past Medical History Hx Anticoagulant Therapy: Yes Anemia: Yes Arthritis: Yes Blood Disorders: No Cancer: Yes (uterine) Cardiac Catheterization: Yes Cardiovascular Problems: Yes Chest Pain: Yes Cerebrovascular Accident: Yes Coronary Artery Disease: Yes Diabetes: No Diminished Hearing: No Endocrine: No Gastrointestinal Disorders: Yes (AVM'S IN GUT, BLOOD TRANSFUSIONS) GERD: Yes Headaches: Yes Hypertension: Yes Immune Disorder: No Musculoskeletal: No Neurologic: No Reproductive: No Respiratory: No Immunizations Current: Yes Migraines: No Myocardial Infarction: Yes Influenza Vaccination: Yes Menopausal: Yes Past Surgical History Abdominal Surgery: No Cardiac Surgery: Yes Coronary Stent: Yes (X'S 07 NOVEMBER 2016, December 2017) Ear Surgery: No Endocrine Surgery: No Eye Surgery: No Genitourinary Surgery: No Gynecologic Surgery: Yes (UTERINE CANCER) Hysterectomy: Yes Neurologic Surgery: No Oral Surgery: Yes (REBUILD BONE & TEETH IMPLANTS) Thoracic Surgery: No Tonsillectomy: Yes (1948) Other Surgery: Yes (BREAST AUGMENTATION) Social History Alcohol Use: No Tobacco Use: No Substance Use: No Allergies-Medications (Allergen,Severity, Reaction): Coded Allergies: No Known Allergies (Verified Allergy, Unknown, 12/28/17) Reported Meds & Prescriptions Reported Meds & Active Scripts Active Reported Pantoprazole (Pantoprazole Sodium) 20 Mg Tab 20 Mg PO DAILY Clopidogrel (Clopidogrel Bisulfate) 75 Mg Tab 75 Mg PO DAILY Isosorbide Mononitrate ER (Isosorbide Mononitrate) 30 Mg Jana 30 Mg PO DAILY Nitroglycerin SL (Nitroglycerin) 0.4 Mg Subl 0.4 Mg SL DIRECTED PRN ONE TABLET UNDER THE TONGUE NEEDED FOR CHEST PAIN, MAY REPEAT EVERY FIVE MINUTES FOR A TOTAL OF 3 DOSES OR CALL 911 IF NO RELIEF Metoprolol Tartrate 25 Mg Tab 25 Mg PO DAILY Lipitor (Atorvastatin Calcium) 40 Mg Tab 80 Mg PO HS Ferrous Sulfate DR (Ferrous Sulfate) 324 Mg Tabdr 324 Mg PO DAILY Aspirin 81 Mg Chew 81 Mg CHEW DAILY Review of Systems Except as stated in HPI: all other systems reviewed are Neg Physical Exam Narrative GENERAL: Well-developed well-nourished female no acute distress SKIN: Warm and dry. HEAD: Atraumatic. Normocephalic. EYES: Pupils equal and round. No scleral icterus. No injection or drainage. ENT: No nasal bleeding or discharge. Mucous membranes pink and moist. NECK: Trachea midline. No JVD. CARDIOVASCULAR: Regular rate and rhythm. No murmur appreciated. RESPIRATORY: No accessory muscle use. Clear to auscultation. Breath sounds equal bilaterally. GASTROINTESTINAL: Abdomen soft, non-tender, nondistended. Hepatic and splenic margins not palpable. MUSCULOSKELETAL: No obvious deformities. No clubbing. No cyanosis. No edema. NEUROLOGICAL: Awake and alert. No obvious cranial nerve deficits. Motor grossly within normal limits. Normal speech. Data Data Last Documented VS Vital Signs Date Time Temp Pulse Resp B/P (MAP) Pulse Ox O2 Delivery O2 Flow Rate FiO2 12/28/17 20:35 80 20 138/63 (88) 96 Room Air 12/28/17 16:41 98.6 Orders Orders Complete Blood Count With Diff (12/28/17 17:16) Comprehensive Metabolic Panel (12/28/17 17:16) Prothrombin Time / Inr (Pt) (12/28/17 17:16) Act Partial Throm Time (Ptt) (12/28/17 17:16) Type And Screen (12/28/17 17:16) Ecg Monitoring (12/28/17 17:16) Iv Access Insert/Monitor (12/28/17 17:16) Oximetry (12/28/17 17:16) Sodium Chlor 0.9% 1000 Ml Inj (Ns 1000 M (12/28/17 17:16) Sodium Chloride 0.9% Flush (Ns Flush) (12/28/17 17:30) Sodium Chloride 0.9... W/Pantoprazole In (12/28/17 17:16) Red Blood Cells (Rbc) (12/28/17 18:05) Ed Discharge Order (12/28/17 18:38) Electrocardiogram (12/28/17 ) Creatine Kinase (Cpk) (12/28/17 22:43) Troponin I (12/28/17 22:43) Chest, Single Ap (12/28/17 ) Admit Order (Ed Use Only) (12/28/17 22:46) Consult Gastroenterology (12/28/17 ) Labs Laboratory Tests Test 12/28/17 17:22 White Blood Count 6.7 TH/MM3 Red Blood Count 2.42 MIL/MM3 Hemoglobin 7.3 GM/DL Hematocrit 23.0 % Mean Corpuscular Volume 95.0 FL Mean Corpuscular Hemoglobin 30.2 PG Mean Corpuscular Hemoglobin Concent 31.8 % Red Cell Distribution Width 18.9 % Platelet Count 252 TH/MM3 Mean Platelet Volume 8.6 FL Neutrophils (%) (Auto) 73.8 % Lymphocytes (%) (Auto) 13.5 % Monocytes (%) (Auto) 7.3 % Eosinophils (%) (Auto) 4.4 % Basophils (%) (Auto) 1.0 % Neutrophils # (Auto) 5.0 TH/MM3 Lymphocytes # (Auto) 0.9 TH/MM3 Monocytes # (Auto) 0.5 TH/MM3 Eosinophils # (Auto) 0.3 TH/MM3 Basophils # (Auto) 0.1 TH/MM3 CBC Comment DIFF FINAL Differential Comment Prothrombin Time 9.7 SEC Prothromb Time International Ratio 1.0 RATIO Activated Partial Thromboplast Time 22.1 SEC Blood Urea Nitrogen 21 MG/DL Creatinine 0.75 MG/DL Random Glucose 115 MG/DL Total Protein 5.9 GM/DL Albumin 3.1 GM/DL Calcium Level 8.1 MG/DL Alkaline Phosphatase 67 U/L Aspartate Amino Transf (AST/SGOT) 22 U/L Alanine Aminotransferase (ALT/SGPT) 26 U/L Total Bilirubin 0.2 MG/DL Sodium Level 142 MEQ/L Potassium Level 3.4 MEQ/L Chloride Level 107 MEQ/L Carbon Dioxide Level 25.9 MEQ/L Anion Gap 9 MEQ/L Estimat Glomerular Filtration Rate 76 ML/MIN [facility] Medical Decision Making Medical Screen Exam Complete: Yes Emergency Medical Condition: Yes Medical Record Reviewed: Yes Differential Diagnosis Upper GI bleed, lower GI bleed, AV malformation, symptomatic anemia Narrative Course Lab work is been ordered. The patient declines rectal examination and feels certain that she has a GI bleed. She is hemodynamically stable. She is not hypotensive, hypoxic or tachycardic. Discussed with my attending who agrees with plan of care. Her lab work reveals a hemoglobin of 7.3, 2 units packed red blood cells ordered. I discussed with Dr. Mathias on-call for her hvac project engineer Dr. Ambriz, recommends transfusion and reexamination, likely will not require intervention, see his notes for further details. The patient is agreeable with this plan. 2230: Still awaiting blood transfusion- the patient is now complaining of a mild fluttering/tightness sensation in her chest. She denies any chest pain, she just says that it is mildly annoying and this is been going on for the past hour. An EKG was obtained revealing sinus rhythm with first-degree AV block, slight ST depression and T-wave inversions are noted in V5 and V6 which appear new in comparison to previous EKG on December 08. Given her cardiac history as well as acute anemia, this could be ischemia secondary to anemia and requires further monitoring. Cardiac enzymes and chest x-ray been ordered. I discussed with Dr. Roberts who is agreeable with admission for observation. Discussed with the patient is agreeable. Diagnosis Primary Impression: GI bleed Additional Impression: Symptomatic anemia Admitting Information Admitting Physician Requests: Observation Referrals: Justin Ambriz MD Primary Care Physician Med/Other Pt SpecificInfo: No Change to Meds Condition: Stable Sawyer Griffin December 28, 2017 17:20
[2017-12-28] MEDS ORDERED: PANT20TA2 PO (17:21)
[2017-12-28] MEDS ORDERED: SODIUM CHLORIDE 0.9% FLUSH 10 ML FLUSH IVF PRN (17:30)
[2017-12-28 18:03] LABS: BASOPHIL # 0.1 TH/MM3 (0-0.2); EOSINOPHIL # 0.3 TH/MM3 (0-0.4); EOSINOPHIL % 4.4 % (0.0-4.0); HEMOGLOBIN 7.3 GM/DL (11.6-15.3); LYMPH % 13.5 % (9.0-44.0); LYMPHOCYTE # 0.9 TH/MM3 (1.0-4.8); MEAN CORPUSCULAR HEMOGLOBIN 30.2 PG (27.0-34.0); MEAN CORPUSCULAR HGB CONC 31.8 % (32.0-36.0); MEAN PLATELET VOLUME 8.6 FL (7.0-11.0); MONO % 7.3 % (0.0-8.0); MONOCYTE # 0.5 TH/MM3 (0-0.9); NEUT % 73.8 % (16.0-70.0); PLATELET COUNT 252 TH/MM3 (150-450); RED BLOOD COUNT 2.42 MIL/MM3 (4.00-5.30); RED CELL DISTRIBUTION WIDTH 18.9 % (11.6-17.2); WHITE BLOOD COUNT 6.7 TH/MM3 (4.0-11.0)
[2017-12-28 18:16] LABS: PROTHROMBIN TIME - PATIENT 9.7 SEC (9.8-11.6)
[2017-12-28 18:20] LABS: ALBUMIN 3.1 GM/DL (3.4-5.0); ALT (GPT) 26 U/L (10-53); AST (GOT) 22 U/L (15-37); BICARBONATE 25.9 MEQ/L (21.0-32.0); BLOOD UREA NITROGEN 21 MG/DL (7-18); CALCIUM 8.1 MG/DL (8.5-10.1); CHLORIDE 107 MEQ/L (98-107); CREATININE 0.75 MG/DL (0.50-1.00); GLOMERULAR FILTRATION RATE 76 ML/MIN (>89); GLUCOSE,RANDOM 115 MG/DL (74-106); SODIUM (NA) 142 MEQ/L (136-145)
[2017-12-28 18:22] LABS: ALKALINE PHOSPHATASE 67 U/L (45-117); TOTAL BILIRUBIN ADULT 0.2 MG/DL (0.2-1.0); TOTAL PROTEIN 5.9 GM/DL (6.4-8.2)
[2017-12-28 20:35] VITALS: BP 138/63; PULSE 80; RESP 20; O2SAT 96
--- NOTE | 2017-12-28 21:36 | MB ---
cc: Robbie Ko MD, Sunil P MD Brenner,Justin Gutierrez MD DATE: 12/28/2017 REASON FOR CONSULTATION: I have been asked to see this patient at the request of Sawyer Griffin for evaluation of anemia. HISTORY OF PRESENT ILLNESS: The patient is a pleasant 72-year-old white female who is known to our practice. 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 These have been documented by capsule endoscopy as well as enteroscopy and colonoscopy. The patient also has history of coronary artery disease and had cardiac stenting recently (earlier this month). She has been placed on Plavix and the Plavix is going to be on for about 9 more days then the doctor wants to stop this. Today, her hemoglobin was low and she was told to come to the emergency room. She is chronically on iron pills. She also had black stools and stool is no different than it was before (still black). She felt weak and tired and felt her heart had some palpitations, which are actually better now. There is no chest pain. The patient denies any dysphagia, odynophagia or early satiety. No nausea, vomiting, heartburn issues. No hematochezia, fever or chills. PAST MEDICAL HISTORY: Multiple AVMs throughout the GI tract is mentioned above. She also has history of anemia, arthritis, coronary artery disease, possible CVA, intermittent GERD (no heartburn today), headache, hypertension, IN and dyslipidemia. PAST SURGICAL HISTORY: Includes a cardiac catheterization. She has had a recent stress test, which she failed. She has had cardiac stents, hysterectomy for uterine cancer, oral surgery, breast augmentation, tonsillectomy, appendectomy.. SOCIAL HISTORY: She does not currently smoke. She quit about a year or 2 ago. She drinks alcohol. ALLERGIES: NO KNOWN DRUG ALLERGIES. MEDICATIONS AN OUTPATIENT: 1. Aspirin (no NSAIDs) . 2. Plavix. 3. Pantoprazole 4. Nitroglycerin 5. Metoprolol. 6. Lipitor 7. Ferrous sulfate. REVIEW OF SYSTEMS: CARDIOVASCULAR:: No chest pain or recent shortness of breath. Her palpitations have resolved. GASTROINTESTINAL: Please see above. She denies any fever, chills or weight loss. Otherwise unremarkable 12-point review of systems. FAMILY HISTORY: Not significant for colon cancer or colon polyps. No apparent GI malignancy in the family. PHYSICAL EXAMINATION: VITAL SIGNS: Blood pressure is 170/72, pulse of 80, respiratory rate 16, temperature 98.6. GENERAL: She is a pale, elderly female who appears to be in no acute GI distress at this time. HEENT: Pupils equal and reactive to light. No obvious scleral icterus. Oropharyngeal had dental caries, No tongue deviation or denisse lesions. Hearing intact. NECK: Supple without lymphadenopathy. LUNGS: Clear to auscultation and percussion. HEART: Regular rate and rhythm. No gross murmurs are heard. ABDOMEN: Soft, nondistended, nontender. No organomegaly, mass. No sign of hernias. RECTAL: I wanted to do a rectal exam, but she declined. EXTREMITIES: No cyanosis, clubbing or edema. NEUROLOGIC: Cranial nerves are grossly intact. No gross sensory deficits. SKIN: Warm and dry. LABORATORY DATA: Revealed hemoglobin 7.3, hematocrit 23, white blood count 6700, MCV of 95, platelet count of 250,000. Her coagulation panel showed an INR of 1.0, prothrombin time of 9.7, PTT of 22.1. Chemistry revealed elevated BUN of 21, creatinine 0.75, potassium 3.4, SGOT 22, SGPT of 26, alkaline phosphatase of 67, total bilirubin 0.2. Albumin was low at 3.1. IMPRESSION: 1. Anemia - She understands that mixed anemia namely iron deficient anemia as well as anemia from bleeding. She understands this is probably for multiple arteriovenous malformations. The chance of ulcer is low since she is taken a proton pump inhibitor. 2. Angiodysplasia/arteriovenous malformations of the GI tract. Multiple ones are noted in the small bowel on colonoscopy, enteroscopy and capsule endoscopy. Apparently there are too many to cauterize. RECOMMENDATIONS: 1. I discussed the condition with the patient as well as the emergency room physician senior court office assistant. The main discussion was we should do a procedure on her. After a long discussion, it was decided to transfuse the patient and see how she does. If she feels well, we can send her home and monitor her carefully. However, if there are signs of active bleeding such as tachycardia, hypotension, then we will probably have to at least do an upper endoscopy here, although I am not quite sure if we can reach all the arteriovenous malformations (we may have to use an enteroscope). We did talk about indications, risks, complications involved with this including risks of bleeding, perforation, infection, arrhythmias, etc. She understands she is slightly higher risk because of recent cardiac event. 2. The patient is also taking Plavix and in about 9 days she will be off the Plavix and this also may be helpful in preventing further anemia and gastrointestinal bleeds. 3. The patient and are agreeable and she hopefully can be discharged after her hemoglobin improves during transfusion and then we will make further recommendations about any timing of procedure or any procedure needs to be done at all. They are aware if I do find AVMs and cauterize them, they can come back again and she has so many AVMs we may not be able to take care of all of them. MD RUSSELL Mondragon/SA , 08:37 PM , 09:35 PM
[2017-12-28 22:43] VITALS: BP 118/59; PULSE 79; RESP 20; TEMP 98.3; O2SAT 99
[2017-12-28 23:01] VITALS: BP 127/58; PULSE 84; RESP 15; TEMP 97.8; O2SAT 99
[2017-12-28] MEDS ORDERED: SODIUM CHLORIDE 0.9% FLUSH 10 ML FLUSH IV FLUSH PRN (23:15)
[2017-12-28] MEDS ORDERED: SENNOSIDES 8.6 MG TAB PO PRN (23:15)
[2017-12-28] MEDS ORDERED: MAGNESIUM HYDROXIDE SUSP 30 ML CUP PO PRN (23:15)
[2017-12-28] MEDS ORDERED: BISACODYL 10 MG SUPP RECTAL PRN (23:15)
[2017-12-28] MEDS ORDERED: LACTULOSE SYRUP 20 GM/30 ML CUP PO PRN (23:15)
[2017-12-28] MEDS ORDERED: ACETAMINOPHEN 325 MG TAB PO PRN (23:15)
[2017-12-28] MEDS ORDERED: NALOXONE HCL 0.4 MG/ML AMP IV PUSH PRN (23:15)
[2017-12-28 23:18] VITALS: BP 126/57; PULSE 89; RESP 20; TEMP 98.1; O2SAT 98
[2017-12-28 23:37] LABS: TROPONIN I 0.02 NG/ML (0.02-0.05)
--- NOTE | 2017-12-28 23:40 | RADRPT ---
EXAM DATE: 12/28/2017 11:23 PM EDT AGE/SEX: 72 years / Female INDICATIONS: Heart palpitations. CLINICAL DATA: This is the patient's initial encounter. Patient reports that signs and symptoms have been present for 1 day and indicates a pain score of 0/10. MEDICAL/SURGICAL HISTORY: . PR Coronary artery stent. COMPARISON: [facility], CHEST SINGLE AP, 08/06/2016. . FINDINGS: A single AP erect portable view of the chest demonstrates the lungs to be symmetrically aerated witho ut evidence of mass, infiltrate or effusion. The cardiomediastinal contours are unremarkable. [place] us structures are intact. Partially calcified breast implants are noted. There are multiple overlyin g electrocardiogram leads. Atherosclerotic changes are present in the aorta. There are costicartilage calcifications. CONCLUSION: Stable appearance with no acute cardiopulmonary disease. Electronically signed by: Gonzalo Amezcua MD 12/28/2017 11:38 PM EDT
[2017-12-29] VITALS (8 sets, daily range): BP systolic 124–136; BP diastolic 60–64; PULSE 54–94; RESP 16; TEMP 96.2–98.6; O2SAT 95–97
--- NOTE | 2017-12-29 00:58 | HHI.HP ---
HPI Service [facility] Primary Care Physician Mattie Mobley MD Admission Diagnosis GI bleed, palpitations Diagnoses: Chief Complaint: low hemoglobin, palpitations Travel History International Travel<30 Days: No Contact w/Intl Traveler <30 Da: No Traveled to Known Affected Are: No History of Present Illness 72 y/o female with a history of GI bleed, CAD, AV malformation was sent to the ED for follow up for outpatient low hemoglobin. Outpatient lab work showed hemoglobin 7.6. She states for the last 3 days she has bee having fatigue and dypnea which usually occurs when her hgb is low. She follows with GI Dr. Ambriz who thought she should come to the ED for evaluation. She does complain of palpitations intermittently. She states she always has dark stools because of her iron use, and she has not noticed any change. She is currently taking Plavix for a stenting of her LCA on December 06, and only has 7 days left to take it. She tends to have increased bleeding when she is on any type of blood thinners. She denies any chest pain, cough, sputum production, fever or chills. Review of Systems Except as stated in HPI: all other systems reviewed are Neg Past Family Social History Past Medical History AV malformations. History of GI bleed. History of CAD status post stents on anti-correlation with aspirin and Plavix. Hypertension. Hyperlipidemia Past Surgical History Hysterectomy. Appendectomy. Breast augmentation. CAD status post stents, most recent december 2017. Reported Medications Reported Meds & Active Scripts Active Reported Pantoprazole (Pantoprazole Sodium) 20 Mg Tab 20 Mg PO DAILY Clopidogrel (Clopidogrel Bisulfate) 75 Mg Tab 75 Mg PO DAILY Isosorbide Mononitrate ER (Isosorbide Mononitrate) 30 Mg Jana 30 Mg PO DAILY Nitroglycerin SL (Nitroglycerin) 0.4 Mg Subl 0.4 Mg SL DIRECTED PRN ONE TABLET UNDER THE TONGUE NEEDED FOR CHEST PAIN, MAY REPEAT EVERY FIVE MINUTES FOR A TOTAL OF 3 DOSES OR CALL 911 IF NO RELIEF Metoprolol Tartrate 25 Mg Tab 25 Mg PO DAILY Lipitor (Atorvastatin Calcium) 40 Mg Tab 80 Mg PO HS Ferrous Sulfate (Ferrous Sulfate) 324 Mg Tabdr 324 Mg PO DAILY Aspirin 81 Mg Chew 81 Mg CHEW DAILY Allergies: Coded Allergies: No Known Allergies (Verified Allergy, Unknown, 12/28/17) Active Ordered Medications Current Medications Medications (Trade) Dose Ordered Sig/Kelsea Route Start Time Stop Time Status Last Admin (NS Flush) 2 ml UNSCH PRN IV FLUSH 12/28/17 23:15 (NS Flush) 2 ml BID IV FLUSH 12/29/17 09:00 (Tylenol) 650 mg Q4H PRN PO 12/28/17 23:15 (Narcan Inj) 0.4 mg UNSCH PRN IV PUSH 12/28/17 23:15 (Milk Of Magnesia Liq) 30 ml Q12H PRN PO 12/28/17 23:15 (Senokot) 17.2 mg Q12H PRN PO 12/28/17 23:15 (Dulcolax Supp) 10 mg DAILY PRN RECTAL 12/28/17 23:15 (Lactulose Liq) 30 ml DAILY PRN PO 12/28/17 23:15 (Aspirin Chew) 81 mg DAILY CHEW 12/29/17 09:00 (Lipitor) 80 mg HS PO 12/29/17 21:00 (Plavix) 75 mg DAILY PO 12/29/17 09:00 (Imdur) 30 mg DAILY@0600 PO 12/29/17 06:00 (Lopressor) 25 mg DAILY PO 12/29/17 09:00 (Protonix) 20 mg DAILY PO 12/29/17 09:00 (Ferrous Sulfate) 325 mg DAILY PO 12/29/17 09:00 Family History Father: [place] Mom: AV malformations Social History Tobacco use: Quit smoking 1 year ago, prior 1 PPD Alcohol use: rarely Physical Exam Vital Signs Vital Signs Date Time Temp Pulse Resp B/P (MAP) Pulse Ox O2 Delivery O2 Flow Rate FiO2 12/29/17 00:37 12/29/17 00:08 98.6 83 16 126/63 (84) 97 12/28/17 23:18 98.1 89 20 126/57 98 12/28/17 23:01 97.8 84 15 127/58 99 12/28/17 22:54 77 20 99 Room Air 12/28/17 22:43 98.3 79 20 118/59 99 12/28/17 20:35 80 20 138/63 (88) 96 Room Air 12/28/17 17:19 100 Room Air 12/28/17 16:41 98.6 88 16 171/72 (105) 99 Physical Exam GENERAL: This is a well-nourished, well-developed patient, in no apparent distress. SKIN: No rashes, ecchymoses or lesions. Cool and dry. HEAD: Atraumatic. Normocephalic. No temporal or scalp tenderness. EYES: Pupils equal round and reactive. Extraocular motions intact. No scleral icterus. No injection or drainage. ENT: Nose without bleeding, purulent drainage or septal hematoma. Throat without erythema, tonsillar hypertrophy or exudate. Uvula midline. Airway patent. NECK: Trachea midline. No JVD or lymphadenopathy. Supple, nontender, no meningeal signs. CARDIOVASCULAR: Regular rate and rhythm without murmurs, gallops, or rubs. RESPIRATORY: Clear to auscultation. Breath sounds equal bilaterally. No wheezes , rales, or rhonchi. GASTROINTESTINAL: Abdomen soft, non-tender, nondistended. No hepato-splenomegaly , or palpable masses. No guarding. MUSCULOSKELETAL: Extremities without clubbing, cyanosis, or edema. No joint tenderness, effusion, or edema noted. No calf tenderness. Negative Homans sign bilaterally. NEUROLOGICAL: Awake and alert. Cranial nerves II through XII intact. Motor and sensory grossly within normal limits. Five out of 5 muscle strength in all muscle groups. Normal speech. Laboratory Laboratory Tests Test 12/28/17 17:22 12/28/17 23:40 White Blood Count 6.7 Red Blood Count 2.42 Hemoglobin 7.3 Hematocrit 23.0 Mean Corpuscular Volume 95.0 Mean Corpuscular Hemoglobin 30.2 Mean Corpuscular Hemoglobin Concent 31.8 Red Cell Distribution Width 18.9 Platelet Count 252 Mean Platelet Volume 8.6 Neutrophils (%) (Auto) 73.8 Lymphocytes (%) (Auto) 13.5 Monocytes (%) (Auto) 7.3 Eosinophils (%) (Auto) 4.4 Basophils (%) (Auto) 1.0 Neutrophils # (Auto) 5.0 Lymphocytes # (Auto) 0.9 Monocytes # (Auto) 0.5 Eosinophils # (Auto) 0.3 Basophils # (Auto) 0.1 CBC Comment DIFF FINAL Differential Comment Prothrombin Time 9.7 Prothromb Time International Ratio 1.0 Activated Partial Thromboplast Time 22.1 Blood Urea Nitrogen 21 Creatinine 0.75 Random Glucose 115 Total Protein 5.9 Albumin 3.1 Calcium Level 8.1 Alkaline Phosphatase 67 Aspartate Amino Transf (AST/SGOT) 22 Alanine Aminotransferase (ALT/SGPT) 26 Total Bilirubin 0.2 Sodium Level 142 Potassium Level 3.4 Chloride Level 107 Carbon Dioxide Level 25.9 Anion Gap 9 Estimat Glomerular Filtration Rate 76 Total Creatine Kinase 50 Troponin I 0.02 LESS THAN 0.02 Result Diagram: 12/28/17 1722 12/28/17 172 Caprini VTE Risk Assessment Caprini VTE Risk Assessment: No/Low Risk (score <= 1) Caprini Risk Assessment Model Point Value = 1 Point Value = 2 Point Value = 3 Point Value = 5 Age 41-60 Minor surgery BMI > 25 kg/m2 Swollen legs Varicose veins or History of unexplained or recurrent spontaneous Oral contraceptives or hormone replacement Sepsis (< 1 month) Serious lung disease, including pneumonia (< 1 month) Abnormal pulmonary function Acute myocardial infarction Congestive heart failure (< 1 month) History of inflammatory bowel disease Medical patient at bed rest Age 61-74 Arthroscopic surgery Major open surgery (> 45 min) Laparoscopic surgery (> 45 min) Malignancy Confined to bed (> 72 hours) Immobilizing plaster cast Central venous access Age >= 75 History of VTE Family history of VTE Factor V Leiden Prothrombin [id number] Lupus anticoagulant Anticardiolipin antibodies Elevated serum homocysteine Heparin-induced thrombocytopenia Other congenital or acquired thrombophilia Stroke (< 1 month) Elective arthroplasty Hip, pelvis, or leg fracture Acute spinal cord injury (< 1 month) Prophylaxis Regimen Total Risk Factor Score Risk Level Prophylaxis Regimen 0-1 Low Early ambulation 2 Moderate Order ONE of the following: *Sequential Compression Device (SCD) *Heparin 5000 units SQ BID 3-4 Higher Order ONE of the following medications: *Heparin 5000 units SQ TID *Enoxaparin/Lovenox 40 mg SQ daily (WT < 150 kg, CrCl > 30 mL/min) *Enoxaparin/Lovenox 30 mg SQ daily (WT < 150 kg, CrCl > 10-29 mL/min) *Enoxaparin/Lovenox 30 mg SQ BID (WT < 150 kg, CrCl > 30 mL/min) AND/OR *Sequential Compression Device (SCD) 5 or more Highest Order ONE of the following medications: *Heparin 5000 units SQ TID (Preferred with Epidurals) *Enoxaparin/Lovenox 40 mg SQ daily (WT < 150 kg, CrCl > 30 mL/min) *Enoxaparin/Lovenox 30 mg SQ daily (WT < 150 kg, CrCl > 10-29 mL/min) *Enoxaparin/Lovenox 30 mg SQ BID (WT < 150 kg, CrCl > 30 mL/min) AND *Sequential Compression Device (SCD) Assessment and Plan Assessment and Plan 72 y/o female with a history of GI bleed, CAD, AV malformation was sent to the ED for follow up for outpatient low hemoglobin. Symptomatic anemia, hgb 7.3 -Transfuse 2 units prbcs -H&H in am -Consult GI: Dr Ko saw patient and states if stable in AM and no active bleeding than she can be discharge and follow up out patient. Once plavix is stopped bleeding should to. -Protonix IV -Cont home iron CAD, chronic, patient with palpitations, r/o ACS Troponin .02 -Trend troponin -Monitor telemetry -Resume Plavix HLD, chronic -Resume home medication lipitor -Heart healthy diet DVT prophylaxis: SCDs Discussed Condition With Patient, RN and patient's Malina Aguila December 29, 2017 00:58
[2017-12-29] MEDS ORDERED: ISOSORBIDE MONONITRATE 30 MG CR TAB (IMDUR) PO SCH (06:00)
[2017-12-29 06:57] LABS: AUTOMATED NEUTROPHIL # 3.8 TH/MM3 (1.8-7.7); BASOPHIL # 0.1 TH/MM3 (0-0.2); BASOPHIL % 1.1 % (0.0-2.0); EOSINOPHIL # 0.4 TH/MM3 (0-0.4); EOSINOPHIL % 8.3 % (0.0-4.0); HEMATOCRIT 30.2 % (35.0-46.0); LYMPH % 13.4 % (9.0-44.0); LYMPHOCYTE # 0.7 TH/MM3 (1.0-4.8); MEAN CELL VOLUME 89.5 FL (80.0-100.0); MEAN CORPUSCULAR HEMOGLOBIN 29.6 PG (27.0-34.0); MEAN CORPUSCULAR HGB CONC 33.1 % (32.0-36.0); MEAN PLATELET VOLUME 8.5 FL (7.0-11.0); MONO % 6.5 % (0.0-8.0); MONOCYTE # 0.4 TH/MM3 (0-0.9); NEUT % 70.7 % (16.0-70.0); PLATELET COUNT 214 TH/MM3 (150-450); RED BLOOD COUNT 3.38 MIL/MM3 (4.00-5.30); RED CELL DISTRIBUTION WIDTH 19.9 % (11.6-17.2); WHITE BLOOD COUNT 5.4 TH/MM3 (4.0-11.0)
[2017-12-29] MEDS ORDERED: PANTOPRAZOLE SOD 20 MG DELAYED RELEASE TAB PO SCH (09:00)
[2017-12-29] MEDS ORDERED: ASPIRIN 81 MG CHEW TAB CHEW SCH (09:00)
[2017-12-29] MEDS ORDERED: CLOPIDOGREL 75 MG TAB PO SCH (09:00)
[2017-12-29] MEDS ORDERED: METOPROLOL TARTRATE 25 MG TAB PO SCH (09:00)
[2017-12-29] MEDS ORDERED: FERROUS SULFATE 325 MG (65 MG ELEMENTAL IRON) TAB PO SCH (09:00)
[2017-12-29] MEDS ORDERED: SODIUM CHLORIDE 0.9% FLUSH 10 ML FLUSH IV FLUSH SCH (09:00)
--- NOTE | 2017-12-29 09:24 | HHI.GIFU ---
GI Follow-up Note Consult Follow-up Subjective: Patient laying in bed comfortably. No overt GI bleeding this morning. Feeling much better after transfusion. Had some degree of heart block -cardiology consulted Objective: PHYSICAL EXAMINATION: Vitals signs stable No fever HEENT: no jaundice. Throat is clear. NECK: Neck is supple, no JVD, no lymphadenopathy. CHEST: Chest is clear to auscultation and percussion. CARDIAC: Regular rate and rhythm with no murmur gallop or rubs. ABDOMEN: Soft, nondistended, nontender; no hepatosplenomegaly; bowel sounds are present in all four quadrants. SKIN: no rash; ORDER BUILDER LOADER: No focal deficits; alert and oriented times three. Available Data (labs, X- Rays, Procedues) : Hemoglobin 10 ASSESSMENT/PLAN: 1. Anemia-better after transfer 2. Multiple AVMs throughout the GI tract PLAN: 1. Patient wants to stop her Plavix. I will leave this up to cardiology 2. Hold off on any procedures as inpatient 3. Can be discharged from the GI standpoint It was a pleasure seeing Wilma Lepe. Thank you for this consult. Entered by: Robbie Fritz MD December 29, 2017 09:24
--- NOTE | 2017-12-29 09:31 | HHI.PR ---
Subjective Remarks Follow-up symptomatic anemia. Patient doing okay denies weakness, dizziness, chest pain, shortness of breath and palpitations. Discussed with cardiology, patient cleared for discharge. Telemetry shows sinus rhythm Objective Vitals Vital Signs Date Time Temp Pulse Resp B/P (MAP) Pulse Ox O2 Delivery O2 Flow Rate FiO2 12/29/17 08:00 96.2 92 16 136/63 (87) 96 12/29/17 04:15 98.2 78 16 124/64 (84) 97 12/29/17 03:58 70 12/29/17 02:30 98.0 82 16 129/60 95 12/29/17 02:15 98.1 54 16 124/60 97 12/29/17 00:37 12/29/17 00:10 75 12/29/17 00:08 98.6 83 16 126/63 (84) 97 12/28/17 23:18 98.1 89 20 126/57 98 12/28/17 23:01 97.8 84 15 127/58 99 12/28/17 22:54 77 20 99 Room Air 12/28/17 22:43 98.3 79 20 118/59 99 12/28/17 20:35 80 20 138/63 (88) 96 Room Air 12/28/17 17:19 100 Room Air 12/28/17 16:41 98.6 88 16 171/72 (105) 99 I/O 12/28/17 12/28/17 12/28/17 12/29/17 12/29/17 12/29/17 07:00 15:00 23:00 07:00 15:00 23:00 Intake Total 1060 ml 1300 ml Balance 1060 ml 1300 ml Intake Oral 480 ml IV Total 1035 ml Packed Cells 800 ml Blood Product IV Normal Saline Flush 25 ml 20 ml # Voids 4 # Bowel Movements 2 Result Diagram: 12/29/17 0630 12/28/17 1722 Imaging Last Impressions Chest X-Ray 12/28/17 0000 Signed Impressions: CONCLUSION: Stable appearance with no acute cardiopulmonary disease. Objective Remarks GENERAL: This is a well-nourished, well-developed patient, in no apparent distress. SKIN: No rashes, ecchymoses or lesions. Cool and dry. CARDIOVASCULAR: Regular rate and rhythm without murmurs, gallops, or rubs. RESPIRATORY: Clear to auscultation. Breath sounds equal bilaterally. No wheezes , rales, or rhonchi. GASTROINTESTINAL: Abdomen soft, non-tender, nondistended. No guarding. MUSCULOSKELETAL: Extremities without clubbing, cyanosis, or edema. No joint tenderness, effusion, or edema noted. No calf tenderness. Negative Homans sign bilaterally. NEUROLOGICAL: Awake and alert. Cranial nerves II through XII intact. Motor and sensory grossly within normal limits. Five out of 5 muscle strength in all muscle groups. Normal speech. Procedures none A/P Problem List: (1) Symptomatic anemia ICD Code: D64.9 - Anemia, unspecified Status: Acute Assessment and Plan 72 y/o female with a history of GI bleed, CAD, AV malformation was sent to the ED for follow up for outpatient low hemoglobin. Symptomatic anemia secondary to acute blood loss. Improved after 2 units RBC transfusion. History of AVM throughout GI tract. Per GI can be discharged home no inpatient procedure as there is no active bleeding. Continue PPI and iron CAD with recent stent. No chest pain. Ruled out for IN. Continue antiplatelets, beta adriana and nitrates. Second EKG read as second-degree AV block with Mobitz 2. I reviewed it it is Mobitz 1. Telemetry shows sinus rhythm with no blocks at this time patient cleared for discharge by cardiology HLD. Stable continue statin DVT prophylaxis: Bret Martell MD December 29, 2017 09:31
--- NOTE | 2017-12-29 09:53 | HHI.DCPOC ---
Discharge Care Plan Diagnosis: (1) Symptomatic anemia Your Health Problems Are: Difficulty with ADL Exercise Tolerance Goals to Promote Your Health * To prevent worsening of your condition and complications * To maintain your health at the optimal level Directions to Meet Your Goals Take your medications as prescribed Follow your dietary instruction Follow activity as directed Keep your appointments as scheduled Take your immunizations and boosters as scheduled If your symptoms worsen call your PCP, if no PCP go to Urgent Care Center or Emergency Room Smoking is Dangerous to Your Health. Avoid second hand smoke Call the 24-hour hour crisis hotline for domestic abuse at Bret Brambila MD December 29, 2017 09:53
[2017-12-29] MEDS ORDERED: POTASSIUM CHLORIDE 10 MEQ CONTROLLED RELEASE TAB PO ONE (10:00)
--- NOTE | 2017-12-29 16:36 | MB ---
cc: Harsha Patel MD DATE: 12/29/2017 HISTORY OF PRESENT ILLNESS: Ms.. Lepe is a 72-year-old white female, well known to my practice with a history of coronary artery disease, myocardial infarction last year, recent coronary stenting, AV malformations, GI bleeding and anemia. Her hemoglobin was found to be 7.6 and she was brought for transfusion. She has had increased palpitations. She was found to have abnormal EKG and was admitted for observation. She has not had any chest pain, shortness of breath. She has had angina prior to her recent stent placement using a bare metal stent. PAST MEDICAL HISTORY: Positive for coronary artery disease, recent coronary stenting, previous myocardial infarction, AV malformations, GI bleeding, hypertension, dyslipidemia. PAST SURGICAL HISTORY: Hysterectomy, appendectomy and breast augmentation. MEDICATIONS: Include: 1. Plavix. 2. Baby aspirin. 3. Iron. 4. Lipitor. 5. Metoprolol. 6. Nitroglycerin p.r.n. 7. Isosorbide. 8. Pantoprazole. ALLERGIES: NONE. SOCIAL HISTORY: The patient does not smoke. She quit smoking 1 year ago. She drinks alcohol rarely. She is . FAMILY HISTORY: Positive for heart disease in her father. REVIEW OF SYSTEMS: Otherwise negative. PHYSICAL EXAMINATION: VITAL SIGNS: Blood pressure 136/63, pulse 92 and regular. HEENT: Negative. NECK: 2+ carotid upstrokes, no bruits. LUNGS: Clear. HEART: Regular with no murmur, gallop or rub. ABDOMEN: Soft with no bruits. EXTREMITIES: Without edema. 2+ distal pulses. NEUROLOGIC: Grossly nonfocal. DIAGNOSTIC DATA: EKG was reviewed and showed a normal sinus rhythm and nonspecific ST changes. Second EKG showed episodes of Wenckebach type 1 second degree AV block. DIAGNOSES: 1. Anemia. 2. Coronary artery disease, recent coronary stenting. 3. Arteriovenous malformation. 4. Gastrointestinal bleeding. 5. Dyslipidemia. 6. Type 1 second degree atrioventricular block. DISPOSITION: Ms. Lepe will continue her current medical program including platelet inhibition with Plavix and aspirin due to her recent coronary stenting. She has been transfused for her anemia. She has mild palpitations but her EKG is relatively unremarkable with a first degree and type 1 second degree AV block only. I recommend to continue her current medical program including aggressive modification of her cardiac risk factors and therapy for coronary artery disease. She can be discharged home this morning. I will see her back for followup in our office after discharge. MD ABDON Naidu/GILDA , 03:05 PM , 04:35 PM
[2017-12-29] MEDS ORDERED: ATORVASTATIN 40 MG TAB PO SCH (21:00)
--- NOTE | 2017-12-30 07:31 | EKG ---
Date Performed: 12/29/2017 Time Performed: 05:28:48 PTAGE: 72 years EKG: Sinus rhythm WITH 2ND DEGREE AV BLOCK, MOBITZ TYPE II POSSIBLE RIGHT VENTRICULAR CONDUCTION DELAY ABNORMAL ECG PREVIOUS TRACING : 12/28/2017 22.33 DOCTOR: Patricia Stevens Interpretating Date/Time 12/30/2017 07:26:58
--- NOTE | 2017-12-30 08:11 | EKG ---
Date Performed: 12/28/2017 Time Performed: 22:33:33 PTAGE: 72 years EKG: Sinus rhythm WITH FIRST DEGREE AV BLOCK POSSIBLE RIGHT VENTRICULAR CONDUCTION DELAY NONSPECIFIC ST & T-WAVE ABNOR MALITY ABNORMAL ECG PREVIOUS TRACING : 12/08/2017 11.34 DOCTOR: Patricia Stevens Interpretating Date/Time 12/30/2017 08:10:20
== END 2017-12-29 12:27 | disposition home or self-care (01) ==
LOC: NEPC 16:25 → NEDA 22:47 → NEPHCDU 12-29 00:08
PROVIDERS: ADMIT Internal Medicine; ATTEND Internal Medicine
DX: D50.0 Iron deficiency anemia secondary to blood loss (chronic) (principal); K92.2 Gastrointestinal hemorrhage, unspecified; K55.20 Angiodysplasia of colon without hemorrhage; Q27.30 Arteriovenous malformation, site unspecified; K21.9 Gastro-esophageal reflux disease without esophagitis; I44.1 Atrioventricular block, second degree; I25.10 Atherosclerotic heart disease of native coronary artery without angina pectoris; I10 Essential (primary) hypertension; I25.2 Old myocardial infarction; E78.5 Hyperlipidemia, unspecified; Z79.02 Long term (current) use of antithrombotics/antiplatelets; Z79.82 Long term (current) use of aspirin; Z86.73 Personal history of transient ischemic attack (TIA), and cerebral infarction without residual deficits; Z95.5 Presence of coronary angioplasty implant and graft; Z90.710 Acquired absence of both cervix and uterus; Z87.891 Personal history of nicotine dependence; Z82.49 Family history of ischemic heart disease and other diseases of the circulatory system
CPT/HCPCS: 36430; 71045; 80053; 82550; 84484; 85025; 85610; 85730; 86850; 86900; 86901; 86902; 86920; 86922; 93005; 96361; 96365; 99285; C9113; G0378; J7030; P9016

== ENCOUNTER → 2017-12-28 | Outpatient (CLI) | payer MEDICARE ==
[~2017-12-28] MED LIST changes: +PANT20TA2 PO
[2017-12-28 13:41] LABS: HEMATOCRIT 24.1 % (35.0-46.0); HEMOGLOBIN 7.6 GM/DL (11.6-15.3)
== END ==
LOC: CLAB 13:22
DX: D50.0 Iron deficiency anemia secondary to blood loss (chronic) (principal)
CPT/HCPCS: 36415; 85014; 85018

== ENCOUNTER → 2018-01-12 | Outpatient (CLI) | payer MEDICARE ==
[~2018-01-12] MED LIST changes: +PANT20TA2 PO; -PRIL20TA2
[2018-01-12 13:14] LABS: AUTOMATED NEUTROPHIL # 5.1 TH/MM3 (1.8-7.7); BASOPHIL % 0.7 % (0.0-2.0); EOSINOPHIL # 0.5 TH/MM3 (0-0.4); EOSINOPHIL % 7.2 % (0.0-4.0); HEMATOCRIT 36.1 % (35.0-46.0); HEMOGLOBIN 11.7 GM/DL (11.6-15.3); LYMPH % 11.2 % (9.0-44.0); LYMPHOCYTE # 0.8 TH/MM3 (1.0-4.8); MEAN CELL VOLUME 89.7 FL (80.0-100.0); MEAN CORPUSCULAR HGB CONC 32.3 % (32.0-36.0); MEAN PLATELET VOLUME 8.9 FL (7.0-11.0); MONO % 7.1 % (0.0-8.0); MONOCYTE # 0.5 TH/MM3 (0-0.9); NEUT % 73.8 % (16.0-70.0); PLATELET COUNT 257 TH/MM3 (150-450); RED BLOOD COUNT 4.03 MIL/MM3 (4.00-5.30); RED CELL DISTRIBUTION WIDTH 15.6 % (11.6-17.2); WHITE BLOOD COUNT 6.9 TH/MM3 (4.0-11.0)
[2018-01-12 13:18] LABS: BILIRUBIN, URINE NEG (NEG); BLOOD, URINE NEG (NEG); GLUCOSE,URINE NEG (NEG); KETONE, URINE NEG (NEG); MUCUS URINE FEW /lpf (OCC); NITRITE,URINE NEG (NEG); SQUAMOUS EPITHELIAL CELL URINE 1 /hpf (0-5); URINE COLOR YELLOW (YELLW/STRAW); URINE LEUKOCYTE ESTERASE TRACE (NEG)
[2018-01-12 13:32] LABS: ALBUMIN 3.8 GM/DL (3.4-5.0); BICARBONATE 25.9 MEQ/L (21.0-32.0); BLOOD UREA NITROGEN 14 MG/DL (7-18); CALCIUM 9.1 MG/DL (8.5-10.1); CHLORIDE 109 MEQ/L (98-107); SODIUM (NA) 142 MEQ/L (136-145)
[2018-01-12 13:45] LABS: AST (GOT) 21 U/L (15-37); CHOLESTEROL 135 MG/DL (120-200); CREATININE 0.84 MG/DL (0.50-1.00); GLOMERULAR FILTRATION RATE 67 ML/MIN (>89); GLUCOSE,FASTING 80 MG/DL (74-99); TRIGLYCERIDES 94 MG/DL (42-150)
[2018-01-12 14:16] LABS: ALKALINE PHOSPHATASE 84 U/L (45-117); ALT (GPT) 30 U/L (10-53); CHOLESTEROL/ HDL RATIO 2.04 RATIO; LDL CHOLESTEROL 50 MG/DL (0-99); TOTAL BILIRUBIN ADULT 0.3 MG/DL (0.2-1.0); TOTAL PROTEIN 6.8 GM/DL (6.4-8.2)
== END ==
LOC: CLAB 12:36
PROVIDERS: ATTEND Family Medicine
DX: E78.00 Pure hypercholesterolemia, unspecified (principal); I10 Essential (primary) hypertension; E55.9 Vitamin D deficiency, unspecified; D64.9 Anemia, unspecified
CPT/HCPCS: 36415; 80053; 80061; 81001; 82306; 82607; 85025